=== PATIENT | male | born 1970 | race Caucasian/White ===

== ENCOUNTER 2018-03-17 20:21 | Inpatient (IN) ==
[2018-03-18] MEDS: Chlorhexidine Gluconate 2% 1 Pack (2 Cloths) TOPICAL SCH (03:44)
[2018-03-18] MEDS ORDERED: Chlorhexidine Gluconate 2% 1 Pack (2 Cloths) TOPICAL PRN (04:00)
[2018-03-18] MEDS ORDERED: Acetaminophen 325 MG Tablet PO PRN (04:20)
[2018-03-18] MEDS ORDERED: Sod Chloride 0.9% Inj 1,000 ML IV.SIG SCH (04:27)
[2018-03-18] MEDS ORDERED: Dextrose 50% in Water 50 ML Vial IV.PUSH PRN (04:28)
[2018-03-18] MEDS ORDERED: Sod Chloride 0.9% Inj 1,000 ML IV.CONT SCH (04:30)
[2018-03-18] MEDS ORDERED: Ketorolac Inj 30 MG/ML (IVP) Vial IV.PUSH ONE (04:32)
--- NOTE | 2018-03-18 04:32 | P.HPIM ---
History of Present Illness Service: [facility] Primary Care Physician: UNKNOWN Chief Complaint: Nausea and vomiting History of Present Illness: 47 y/o male with a history of DM, HTN, and an AR ( age 40, no stents) presented to the ED with complaints of Nausea and vomiting since Friday, no BM since and shortness of breath. He states he has not been able to keep anything down and feels he can not catch his breath. Denies any chest pain, abdominal pain, abdominal distention, dysuria, cough, or fever. He does have chills. Inpatient Certification Inpatient Certification: I certify that the inpatient services were ordered in accordance with Medicare regulations governing the order. This includes certification that hospital inpatient services are reasonable and necessary and in the case of services not specified as inpatient-only under 42 CFR 419.22(n), that they are appropriately provided as inpatient services in accordance to with the 2-midnight benchmark under 43 CFR 412.3(e) Estimated Total Length of Stay (Days): 2 Plans for Post Hospital Care: Home Review of Systems Review of Systems: all other systems reviewed are negative PMFSH History History Provided By: Patient Medical History Medical History Diabetes mellitus (Acute) HTN (hypertension) (Acute) Hypercholesterolemia (Acute) Myocardial infarction (Acute) Neuropathy (Acute) Surgical History Surgical History Hx of appendectomy (Acute) Family History Family History Mother Breast cancer Heart disease Diabetes Father Heart disease Diabetes Social History Social History Substance History: No History of Abuse Second Hand Smoke Exposure: No Smoking Status: Never smoker How Often Do You Have a Drink Containing Alcohol: Never Medications and Allergies Allergies Allergy/AdvReac Type Severity Reaction Status Date / Time No Known Allergies Allergy Verified 03/17/18 20:42 Home Medications Medication Instructions Recorded Confirmed Type aspirin [Aspirin Low Dose] 81 mg PO DAILY 01/26/18 03/17/18 History gabapentin 100 mg PO TID 01/26/18 03/17/18 History insulin glargine [Lantus U-100 50 unit SUBCUT BID 01/26/18 03/17/18 History Insulin] lisinopril 10 mg PO DAILY 01/26/18 03/17/18 History pravastatin 40 mg PO DAILY 01/26/18 03/17/18 History sertraline [Zoloft] 50 mg PO DAILY 01/26/18 03/17/18 History Active Medications: Active Medications Acetaminophen (Tylenol) 650 mg PO Q4H PRN PRN Reason: Temp > 100.4 Chlorhexidine Gluconate (Chlorhexidine 2% Cloth) 3 pack TOPICAL DAILY@0400 LI Stop: 03/23/18 03:59 Last Admin: 03/18/18 03:44 Dose: 3 pack Chlorhexidine Gluconate (Chlorhexidine 2% Cloth) 3 pack TOPICAL DAILY@0400 PRN PRN Reason: Extra cloth needed Stop: 03/23/18 03:59 Sodium Chloride (Ns Inj) 1,000 mls @ 1,000 mls/hr IV.SIG BOLUS [facility] Stop: 03/18/18 05:26 Ondansetron HCl (Zofran Inj) 4 mg IV.PUSH Q6H PRN PRN Reason: NAUSEA OR VOMITING Sodium Chloride (Ns Flush) 2 ml IV.FLUSH BID [facility] Sodium Chloride (Ns Flush) 2 ml IV.FLUSH PRN PRN PRN Reason: FLUSH AFTER USING IV ACCESS Physical Exam Vital signs: Last Vital Signs Temp 98.5 F 03/18/18 04:00 Pulse 108 H 03/18/18 04:00 Resp 32 H 03/18/18 04:00 BP 144/76 H 03/18/18 04:00 Pulse Ox 96 03/18/18 04:00 Intake & Output 03/15/18 03/16/18 03/17/18 03/18/18 06:59 06:59 06:59 06:59 Weight 94 kg Narrative: GENERAL: well nourished patient who appears sob SKIN: Warm and dry. multiple scabs on bilateral lower extremities EYES: No scleral icterus. No injection or drainage. NECK: Supple, trachea midline. No JVD or lymphadenopathy. CARDIOVASCULAR: Tachycardic rate and rhythm without murmurs, gallops, or rubs. RESPIRATORY: Breath sounds equal bilaterally. diminished bases GASTROINTESTINAL: Abdomen soft, non-tender, nondistended. MUSCULOSKELETAL: No cyanosis, or edema. Caprini VTE Risk Assessment Caprini VTE Risk Assessment: Moderate/High Risk (score >= 2) Caprini Risk Assessment Model: Point Value = 1 Point Value = 2 Point Value = 3 Point Value = 5 Age 41-60 Minor surgery BMI > 25 kg/m2 Swollen legs Varicose veins or History of unexplained or recurrent spontaneous Oral contraceptives or hormone replacement Sepsis (< 1 month) Serious lung disease, including pneumonia (< 1 month) Abnormal pulmonary function Acute myocardial infarction Congestive heart failure (< 1 month) History of inflammatory bowel disease Medical patient at bed rest Age 61-74 Arthroscopic surgery Major open surgery (> 45 min) Laparoscopic surgery (> 45 min) Malignancy Confined to bed (> 72 hours) Immobilizing plaster cast Central venous access Age >= 75 History of VTE Family history of VTE Factor V Leiden Prothrombin [id number] Lupus anticoagulant Anticardiolipin antibodies Elevated serum homocysteine Heparin-induced thrombocytopenia Other congenital or acquired thrombophilia Stroke (< 1 month) Elective arthroplasty Hip, pelvis, or leg fracture Acute spinal cord injury (< 1 month) Prophylaxis Regimen: Total Risk Factor Score Risk Level Prophylaxis Regimen 0-1 Low Early ambulation 2 Moderate Order ONE of the following: *Sequential Compression Device (SCD) *Heparin 5000 units SQ BID 3-4 Higher Order ONE of the following medications: *Heparin 5000 units SQ TID *Enoxaparin/Lovenox 40 mg SQ daily (WT < 150 kg, CrCl > 30 mL/min) *Enoxaparin/Lovenox 30 mg SQ daily (WT < 150 kg, CrCl > 10-29 mL/min) *Enoxaparin/Lovenox 30 mg SQ BID (WT < 150 kg, CrCl > 30 mL/min) AND/OR *Sequential Compression Device (SCD) 5 or more Highest Order ONE of the following medications: *Heparin 5000 units SQ TID (Preferred with Epidurals) *Enoxaparin/Lovenox 40 mg SQ daily (WT < 150 kg, CrCl > 30 mL/min) *Enoxaparin/Lovenox 30 mg SQ daily (WT < 150 kg, CrCl > 10-29 mL/min) *Enoxaparin/Lovenox 30 mg SQ BID (WT < 150 kg, CrCl > 30 mL/min) AND *Sequential Compression Device (SCD) Assessment and Plan Plan 47 y/o male with a history of DM, HTN, and an AR (age 40, no stents) presented to the ED with complaints of Nausea and vomiting since Friday, no BM since and shortness of breath. Nausea and vomiting, unknown etiology Abdominal CT reviewed and shows no acute abnormality -antiemetics as needed -NS bolus for hydration Leukocytosis with Bandemia, 37%, wbc 13.8 Chest XR unremarkable -Blood cultures ordered -Lactic acid ordered -Empirically treat with IV Zosyn -UA culture pending, UA abnormal but does not appear infectious -Labs in AM Tachycardia, r/o PE D dimer 2.0 -VQ scan ordered since patient received contrast with CT -Cont heparin drip NSTEMI, troponin .14-->.18 EKG shows sinus tach, no ST elevation -3rd troponin set pending -Heparin drip ordered -consult to cardiology -2D echo ordered DM, chronic -Accu checks with SSI HTN, chronic -Nursing order to call and update med rec -Monitor vitals DVT prophylaxis: SCDs, Heparin H&P: Quality VTE Deep Vein Thrombosis/Pulmonary Embolism Present on Admission: No
[2018-03-18] MEDS ORDERED: Heparin Drip 25,000 UNIT/250 ML BAG IV.CONT PRN (04:40)
[2018-03-18] MEDS: Piperacil/Tazo 3.375 GM Premix 3.375 GM/50 ML PIGGYBACK IV.SIG SCH ×4 (05:37→23:16)
[2018-03-18] MEDS ORDERED: Bisacodyl 10 MG Supp RECTAL ONE (07:00)
[2018-03-18 08:03] LABS: Baso % (Auto) 0.3 % (0.0-2.0); Eos % (Auto) 0.2 % (0.0-4.0); Hematocrit 32.1 % (39.0-51.0); Hemoglobin 10.8 gm/dL (13.0-17.0); Lymph % (Auto) 7.4 % (9.0-44.0); Mean Corpuscular HGB Conc 33.7 % (32.0-36.0); Mean Corpuscular Hemoglobin 27.5 pg (27.0-34.0); Mean Corpuscular Volume 81.7 fL (80.0-100.0); Mean Platelet Volume 8.6 fL (7.0-11.0); Mono # (Auto) 0.8 th/mm3 (0.0-0.9); Mono % (Auto) 6.4 % (0.0-8.0); Neut # (Auto) 11.2 th/mm3 (1.8-7.7); Neut % (Auto) 85.7 % (16.0-70.0); Platelet Count 178 th/mm3 (150-450); Red Blood Count 3.94 mil/mm3 (4.50-5.90); Red Cell Distribution Width 13.1 % (11.6-17.2)
[2018-03-18 08:30] LABS: Anion Gap 8 meq/L (5-15); Blood Urea Nitrogen 9 mg/dL (7-18); Calcium 8.6 mg/dL (8.5-10.1); Carbon Dioxide 27.8 meq/L (21.0-32.0); Chloride 96 meq/L (98-107); Glomerular Filtration Rate Greater Than 89 mL/min (>89); Glucose,Random 213 mg/dL (74-106); Potassium 3.5 meq/L (3.5-5.1); Sodium 132 meq/L (136-145)
[2018-03-18 08:35] LABS: Creatine Kinase 27 U/L (39-308)
[2018-03-18] MEDS: Insulin NovoLOG Aspart Correctional Sugar Inj SQ SCH ×4 (09:00→20:48)
[2018-03-18] MEDS: Aspirin 325 MG Tablet PO SCH (09:28)
[2018-03-18] MEDS: Ketorolac Inj 30 MG/ML (IVP) Vial IV.PUSH PRN ×2 (10:41→17:49)
--- NOTE | 2018-03-18 11:42 | NM ---
EXAM DATE: 03/18/2018 11:35 AM EST AGE/SEX: 47 years / Male INDICATIONS: Dyspnea. CLINICAL DATA: This is the patient's initial encounter. Patient reports that signs and symptoms have been present for 1 day and indicates a pain score of 0/10. MEDICAL/SURGICAL HISTORY: Diabetes mellitus type II. Hypertension. Myocardial infarction. Claudio endectomy. COMPARISON: [facility], CHEST 2V AP&LAT, 03/17/2018. . DOSE: 1.3 mCi Tc99m DTPA aerosol 8.7 mCi Tc99m MAA IV TECHNIQUE: Following five minutes of tidal breathing of DTPA aerosol, planar images of the lungs wer e performed in eight projections. The patient was then injected with MAA, and eight-view perfusion s can was performed. FINDINGS: There is a homogeneous pattern of aerosol delivery to the periphery of both lungs. No focal ventilat ory defects are seen. The perfusion lung scan demonstrates a homogenous pattern of uptake in both lungs. No segmental or s ubsegmental defects are seen. CONCLUSION: 1. Negative examination. Electronically signed by: Sara Belle MD Board Certified Radiologist 03/18/2018 11:41 AM EST
--- NOTE | 2018-03-18 13:53 | MB ---
cc: Jeffrey Gomez MD DATE: 03/18/2018 CARDIOLOGY CONSULT NOTE REASON FOR CONSULTATION: Elevated troponin. HISTORY OF PRESENT ILLNESS: The patient is a 47-year-old white male with a history of diabetes, hypertension, hyperlipidemia, coronary artery disease, apparently status post myocardial infarction in 2009 in [place], who presented to the hospital with a 4-day history of nausea, vomiting, constipation, fever. In addition, yesterday he developed dyspnea, which persists today. He denies chest pain, pedal edema, paroxysmal nocturnal dyspnea, palpitations, syncope, near syncope, lightheadedness. Since coming into the hospital, his nausea and vomiting have resolved. He had not had a bowel movement in a week, but was able to have a good bowel movement this morning. PAST MEDICAL HISTORY: 1. Diabetes. 2. Hypertension. 3. Hyperlipidemia. 4. Coronary artery disease, reportedly status post myocardial infarction in 2009 in [place]. He states he did undergo cardiac catheterization, but no percutaneous coronary intervention was done. PAST SURGICAL HISTORY: 1. Appendectomy. 2. LASIK eye surgery. CARDIAC MEDICATIONS AT HOME: 1. Aspirin 81 mg daily. 2. Pravastatin 40 mg daily. 3. Lisinopril 10 mg daily. ALLERGIES: NO KNOWN DRUG ALLERGIES. FAMILY HISTORY: Both parents sustained myocardial infarctions in their 50s, his mother subsequently undergoing 5 stent procedures and dying from congestive heart failure, his father subsequently undergoing coronary artery bypass grafting. SOCIAL HISTORY: The patient denies any history of alcohol or tobacco abuse. REVIEW OF SYSTEMS: As in history of present illness, otherwise negative or noncontributory. He also denies headache, melena, dyspepsia, bright red blood per rectum. PHYSICAL EXAMINATION: VITAL SIGNS: His blood pressure 147/83 with a pulse of 80, respirations 12. GENERAL: He is a well-developed, well-nourished white male, in no acute distress. NECK: Jugular venous pressure normal. Carotid pulses are 2+ bilaterally and without bruits. CHEST: Reveals clear lungs rod. CARDIAC: He has a regular rhythm and rate without S3, S4, or murmur. ABDOMEN: He has a soft, nontender abdomen. Bowel sounds are present. There is no definite hepatosplenomegaly. EXTREMITIES: Reveals no clubbing, cyanosis or edema. Peripheral pulses are normal throughout. DIAGNOSTIC DATA: EKG from 1-19 at 12:36 a.m. shows normal sinus rhythm, normal EKG. IMAGING: Chest x-ray shows no acute disease. LABORATORY DATA: Includes potassium 3.5, BUN 9, creatinine 0.79. CK 27. Troponin 0.30. WBC 13.0, hemoglobin 10.8, platelets 178. IMPRESSION: Minimally elevated troponin level in this 47-year-old white male with a history of diabetes, hypertension, hyperlipidemia, coronary artery disease status post myocardial infarction in 2009. The patient has had no definite chest pain symptoms. EKGs are unremarkable. CK level is negative for myocardial infarction. Overall, there is no definite evidence for acute coronary syndrome. He has not had cardiac workup since his myocardial infarction. RECOMMENDATIONS: 1. Await his 2-D echo. If his left ventricular function is reduced, would recommend beta carlota therapy as well. 2. Check a Lexiscan nuclear stress test. Unless it shows major ischemia, would recommend medical therapy. 3. Will followup as needed for any ischemia demonstrated on nuclear stress testing. MD GHAZALA Huff/jaziel , 01:02 PM , 01:11 PM THANH
--- NOTE | 2018-03-18 13:57 | ECHRPT ---
Indication: HEART FAILURE CONCLUSIONS Normal left ventricular size. Wall thickness is measured at the upper limits of normal. The left ventricular systolic function is normal with an estimated ejection fraction in the range of 60-65%. No definite regional wall motion abnormalities are present. There is mild tricuspid valve regurgitation. The estimated pulmonary arterial pressure is 25 mmHg. BP: / HR: Rhythm: MEASUREMENTS (Male / Female) Normal Values Technical Quality: 2D ECHO LV Diastolic Diameter PLAX 4.0 cm 4.2 - 5.9 / 3.9 - 5.3 cm LV Systolic Diameter PLAX 2.8 cm IVS Diastolic Thickness 1.7 cm 0.6 - 1.0 / 0.6 - 0.9 cm LVPW Diastolic Thickness 1.4 cm 0.6 - 1.0 / 0.6 - 0.9 cm LV Relative Wall Thickness 0.8 RV Internal Dim ED PLAX 3.3 cm LVOT Diameter 2.0 cm Aortic Root Diameter 2.3 cm LA Systolic Diameter LX 3.5 cm 3.0 - 4.0 / 2.7 - 3.8 cm M-MODE Aortic Root Diameter MM 3.4 cm LA Systolic Diameter MM 4.8 cm LA Ao Ratio MM 1.4 AV Cusp Separation MM 2.2 cm DOPPLER AV Peak Velocity 121.0 cm/s AV Peak Gradient 5.9 mmHg LVOT Peak Velocity 114.0 cm/s LVOT Peak Gradient 5.2 mmHg AV Area Cont Eq pk 3.0 cm Mitral E Point Velocity 91.8 cm/s Mitral A Point Velocity 97.2 cm/s Mitral E to A Ratio 0.9 LV E' Lateral Velocity 10.8 cm/s Mitral E to LV E' Lateral Ratio 8.5 LV E' Septal Velocity 6.8 cm/s Mitral E to LV E' Septal Ratio 13.5 TR Peak Velocity 192.0 cm/s TR Peak Gradient 14.7 mmHg Right Atrial Pressure 10.0 mmHg Pulmonary Artery Systolic Pressu 24.7 mmHg Right Ventricular Systolic Press 24.7 mmHg PV Peak Velocity 130.0 cm/s PV Peak Gradient 6.8 mmHg FINDINGS LEFT VENTRICLE Normal left ventricular size. Wall thickness is measured at the upper limits of normal. The left ventricular systolic function is normal with an estimated ejection fraction in the range of 60-65%. No definite regional wall motion abnormalities are present. RIGHT VENTRICLE Normal right ventricular size and systolic function. LEFT ATRIUM The left atrial size is normal. RIGHT ATRIUM The right atrial size is normal. ATRIAL SEPTUM Normal atrial septal thickness without atrial level shunting by limited color doppler interrogation. AORTA The aortic root and proximal ascending aorta are normal in size on limited imaging. MITRAL VALVE Structurally normal mitral valve. No mitral valve stenosis or regurgitation. AORTIC VALVE Trileaflet aortic valve. No aortic valve stenosis or regurgitation. TRICUSPID VALVE The estimated pulmonary arterial pressure is 25 mmHg. There is mild tricuspid valve regurgitation. PULMONARY VALVE No pulmonary valve regurgitation or stenosis. VESSELS The inferior vena cava is normal in size. PERICARDIUM No pericardial effusion. Jeffrey Gomez MD (Electronically Signed) Final Date:18 March 2018 13:57
--- NOTE | 2018-03-18 17:00 | P.PNIM ---
Patient was evaluated today. VQ scan was negative. ECHO was within normal limits. Evaluated by cardiology w/ stress test pending. He remains tachypneic and tachycardic without obvious source for his chest pain and discomfort. He will remain in the ICU until his etiology becomes more clear.
[2018-03-19] MEDS: Ketorolac Inj 30 MG/ML (IVP) Vial IV.PUSH PRN (00:45)
[2018-03-19] MEDS: Piperacil/Tazo 3.375 GM Premix 3.375 GM/50 ML PIGGYBACK IV.SIG SCH ×2 (05:19→10:45)
[2018-03-19] MEDS: Chlorhexidine Gluconate 2% 1 Pack (2 Cloths) TOPICAL SCH (05:19)
[2018-03-19 06:18] LABS: Hematocrit 32.3 % (39.0-51.0); Hemoglobin 10.8 gm/dL (13.0-17.0); Mean Corpuscular HGB Conc 33.5 % (32.0-36.0); Mean Corpuscular Hemoglobin 27.7 pg (27.0-34.0); Mean Corpuscular Volume 82.6 fL (80.0-100.0); Mean Platelet Volume 8.1 fL (7.0-11.0); Platelet Count 192 th/mm3 (150-450); Red Blood Count 3.91 mil/mm3 (4.50-5.90); Red Cell Distribution Width 13.4 % (11.6-17.2); White Blood Count 11.4 th/mm3 (4.0-11.0)
[2018-03-19] MEDS: Heparin - SQ 10,000 UNITS/ML Vial SQ SCH ×2 (08:36→21:42)
[2018-03-19] MEDS: Aspirin 325 MG Tablet PO SCH (08:36)
[2018-03-19] MEDS: Insulin NovoLOG Aspart Correctional Sugar Inj SQ SCH ×4 (08:41→21:42)
--- NOTE | 2018-03-19 12:04 | P.PNIM ---
Subjective Interval history: Patient is currently in no acute distress. He denies any chest pain. No palpitations. He said he has a poor appetite but his nausea and vomiting has resolved. Physical Exam Vital signs: Vital Signs 03/18/18 12:00 03/18/18 16:00 03/18/18 17:00 Temperature 98.9 F 98.7 F Pulse Rate 107 H 108 H 107 H Respiratory Rate 22 21 23 Blood Pressure 142/73 H 146/70 H 138/63 Pulse Oximetry 97 95 96 03/18/18 18:00 03/18/18 20:00 03/18/18 22:34 Temperature 98.6 F Pulse Rate 106 H 106 H 109 H Respiratory Rate 21 20 Blood Pressure 153/88 H 129/65 Pulse Oximetry 96 99 03/19/18 00:00 03/19/18 04:00 03/19/18 08:00 Temperature 98.4 F 98.3 F 98.7 F Pulse Rate 104 H 93 H 96 H Respiratory Rate 20 20 21 Blood Pressure 169/92 H 134/63 175/89 H Pulse Oximetry 95 97 97 Intake & Output 03/18/18 03/19/18 03/19/18 18:59 06:59 18:59 Intake Total 2450 / 2450 580 / 580 Output Total 1500 / 1500 Balance 2450 / 2450 -920 / -920 Weight 94.5 kg Intake: IV 1250 / 1250 100 / 100 Heparin/D5W 25,000 U/250 mL 25, 150 / 150 000 unit In 250 ml @ Per Protocol IV.CONT TITRATE PRN Rx #:[id number] Zosyn 3.375 GM Premix 3.375 gm 100 / 100 100 / 100 In 50 ml @ 100 mls/hr IV.SIG Q6H LI Rx#:[id number] NS Inj 1,000 ML @ 1000 mls/hr 1000 / 1000 IV.SIG BOLUS LI Rx#:[id number] Oral 1200 / 1200 480 / 480 Output: Urine 1500 / 1500 Other: # Voids 5 Date of Last Bowel Movement 03/18/18 03/18/18 03/18/18 # Bowel Movements 2 0 Narrative: General patient in no acute distress, no chest pain HEENT extraocular movements are intact, clear oropharyngeal mucosa, no JVD Cardiovascular S1-S2 audible Respiratory clear to auscultation bilaterally Abdomen soft, nontender, nondistended, normal bowel sounds Extremities multiple wounds of bilateral lower extremities as well as left shoulder, no active drainage. Neuro no focal neurological deficits. Results - Labs CBC & Chem 7: 03/19/18 05:40 03/18/18 06:00 Laboratory Results - last 24 hr 03/18/18 03/18/18 03/18/18 12:19 14:52 17:48 WBC RBC Hgb Hct MCV MCH MCHC RDW Plt Count MPV APTT 33.6 H POC Glucose 226 H 215 H 03/18/18 03/19/18 03/19/18 20:33 05:40 08:35 WBC 11.4 H RBC 3.91 L Hgb 10.8 L Hct 32.3 L MCV 82.6 MCH 27.7 MCHC 33.5 RDW 13.4 Plt Count 192 MPV 8.1 APTT POC Glucose 180 H 190 H 03/19/18 10:59 WBC RBC Hgb Hct MCV MCH MCHC RDW Plt Count MPV APTT POC Glucose 198 H Microbiology 03/18/18 04:55 Blood - Peripheral Aerobic Blood Culture - Preliminary Staphylococcus aureus 03/18/18 04:55 Blood - Peripheral Anaerobic Blood Culture - Preliminary No growth in 1 day 03/18/18 05:13 Blood - Peripheral Aerobic Blood Culture - Preliminary gram positive cocci 03/18/18 05:13 Blood - Peripheral Anaerobic Blood Culture - Preliminary No growth in 1 day 03/18/18 11:00 Stool Stool Occult Blood (LETY) - Final Hemoccult negative - Imaging Impressions Pulmonary Perfusion Imaging 03/18/18 00:00 CONCLUSION: 1. Negative examination. Assessment and Plan - Plan This patient is a 47-year-old male with a diagnosis of insulin-dependent diabetes, hypertension, history of IN at age 40, no stents. Patient presented to the emergency part with complaints of nausea vomiting that have been ongoing since this past Friday. He also complained of some shortness of breath during that time. 1. Elevated troponin Patient presents with the symptoms mentioned above. EKG shows normal sinus rhythm no acute ST segment or T wave changes. Initial set of troponins was 0.14 increased to 0.3. Follow-up repeat troponin Cardiology evaluated the patient and recommended a 2D echocardiogram, EF is around 60%. We will follow-up repeat troponin. Patient may need a Lexiscan as per cardiology recommendations. Cardiology following the patient, will follow up with the recognitions. Continue aspirin, metoprolol started. Atorvastatin will also be started the patient's medication regimen. Patient is now off the heparin drip. Continue to monitor on telemetry. 2. Insulin-dependent diabetes Patient's blood sugar running in the 200s-250s. Patient does not have a very good appetite currently we will start Levemir 5 units subcu nightly, continue low-dose insulin sliding scale. We will continue monitor the patient's blood sugars and adjust his medications as needed 3. GPC bacteremia Patient with multiple wounds on b/l lower exts and left shoulder. Most of them are healing or have healed. WBC count was elevated, now downtrending. 2 out of 2 blood cultures are positive for GPC. We will follow-up final cultures Infectious disease consulted. 2D echocardiogram did not show any clear findings of vegetations. I will follow-up with infectious disease recommendations, I would appreciate their input. IV Zosyn discontinued, patient does not have any GI symptoms currently. Vancomycin IV started. DVT prophylaxis, patient is currently on heparin. Plan discussed with the patient's nurse April at bedside.
[2018-03-19] MEDS: Vancomycin Inj 1,000 MG in Sodium Chlor 0.9% Inj 250 ML IV.SIG SCH (12:46)
[2018-03-19] MEDS: Metoprolol Tartrate 25 MG Tablet PO SCH ×2 (12:46→21:42)
--- NOTE | 2018-03-19 17:51 | P.CONID ---
History of Present Illness Service: ID Consult date: 03/19/18 Requesting Physician: Killian Teixeira Reason for Consult: bacteremia Primary Care Provider: UNKNOWN Chief Complaint: Nausea and vomiting History of Present Illness: 47 yo male with h/o DM hypertension, hyperlipidemia, coronary artery disease, apparently status post myocardial infarction in 2009 presented with 4-day history of nausea , vomiting, constipation, fever. dyspnea x 1 day which persists today. Blood clx arfe positive for MSSA 2 D echo negative He has had BMs since admission No open sores, but reports multiple skin lesionz Started on vancomycin, zosyn, zosyn now stopped CXR and CT abd/pel negative Review of Systems All other systems reviewed negative except as stated in HPI PMFSH - History History Provided By: Patient - Medical History Medical History: Medical History (Last Reviewed 03/19/18 @ 23:18 by Violetta Blanca MD) Diabetes mellitus HTN (hypertension) Hypercholesterolemia Myocardial infarction Neuropathy - Surgical History Surgical History: Surgical History (Last Reviewed 03/19/18 @ 23:18 by Violetta Blanca MD) Hx of appendectomy - Family History Family History: Family History (Last Reviewed 03/19/18 @ 23:18 by Violetta Blanca MD) Mother Breast cancer Heart disease Diabetes Father Heart disease Diabetes - Social History I have reviewed the patient's Social History: Yes - Tobacco History Second Hand Smoke Exposure: No Smoking Status: Never smoker - Alcohol History How Often Do You Have a Drink Containing Alcohol: Never - Substance Use History Substance History: No History of Abuse Medications and Allergies Active Medications: Active Medications Acetaminophen (Tylenol) 650 mg PO Q4H PRN PRN Reason: Temp > 100.4 Aspirin (Aspirin Chew) 81 mg PO DAILY [facility] Last Admin: 03/19/18 12:46 Dose: 81 mg Atorvastatin Calcium (Lipitor) 40 mg PO HS [facility] Chlorhexidine Gluconate (Chlorhexidine 2% Cloth) 3 pack TOPICAL DAILY@0400 LI Stop: 03/23/18 03:59 Last Admin: 03/19/18 05:19 Dose: 3 pack Chlorhexidine Gluconate (Chlorhexidine 2% Cloth) 3 pack TOPICAL DAILY@0400 PRN PRN Reason: Extra cloth needed Stop: 03/23/18 03:59 Dextrose (D50w Vial) 50 ml IV.PUSH UNSCH PRN PRN Reason: PER HYPOGLYCEMIA PROTOCOL Glucagon (Glucagon Inj) 1 mg OTHER PRN PRN PRN Reason: for Hypoglycemia Protocol Heparin Sodium (Porcine) (Heparin Inj) 5,000 units SQ Q12H [facility] Last Admin: 03/19/18 08:36 Dose: 5,000 units Vancomycin HCl 1,000 mg/ (Sodium Chloride) 250 mls @ 250 mls/hr IV.SIG Q12H [facility] Last Infusion: 03/19/18 14:12 Dose: Infused Insulin Aspart (Novolog Insulin Correctional Sugar Inj) 0 unit SQ [facility]; Protocol Last Admin: 03/19/18 16:07 Dose: 2 unit Insulin Detemir (Levemir Inj) 5 unit SQ [facility] Ketorolac Tromethamine (Toradol Inj) 15 mg IV.PUSH Q6H PRN PRN Reason: Acute Pain Last Admin: 03/19/18 00:45 Dose: 15 mg Metoprolol Tartrate (Lopressor) 12.5 mg PO BID [facility] Last Admin: 03/19/18 12:46 Dose: 12.5 mg Ondansetron HCl (Zofran Inj) 4 mg IV.PUSH Q6H PRN PRN Reason: NAUSEA OR VOMITING Sodium Chloride (Ns Flush) 2 ml IV.FLUSH BID [facility] Last Admin: 03/19/18 08:36 Dose: 2 ml Sodium Chloride (Ns Flush) 2 ml IV.FLUSH PRN PRN PRN Reason: FLUSH AFTER USING IV ACCESS Allergies Allergy/AdvReac Type Severity Reaction Status Date / Time No Known Allergies Allergy Verified 03/17/18 20:42 Home Medications Medication Instructions Recorded Confirmed Type aspirin [Aspirin Low Dose] 81 mg PO DAILY 01/26/18 03/17/18 History gabapentin 100 mg PO TID 01/26/18 03/17/18 History insulin glargine [Lantus U-100 50 unit SUBCUT BID 01/26/18 03/17/18 History Insulin] lisinopril 10 mg PO DAILY 01/26/18 03/17/18 History pravastatin 40 mg PO DAILY 01/26/18 03/17/18 History sertraline [Zoloft] 50 mg PO DAILY 01/26/18 03/17/18 History Exam Vital signs: Vital Signs 03/18/18 18:00 03/18/18 20:00 03/18/18 22:34 Temperature 98.6 F Pulse Rate 106 H 106 H 109 H Respiratory Rate 21 20 Blood Pressure 153/88 H 129/65 Pulse Oximetry 96 99 03/19/18 00:00 03/19/18 04:00 03/19/18 08:00 Temperature 98.4 F 98.3 F 98.7 F Pulse Rate 104 H 93 H 96 H Respiratory Rate 20 20 21 Blood Pressure 169/92 H 134/63 175/89 H Pulse Oximetry 95 97 97 03/19/18 08:49 03/19/18 09:00 03/19/18 09:01 Temperature Pulse Rate 98 H 92 H 91 H Respiratory Rate 25 H 24 23 Blood Pressure 149/80 H Pulse Oximetry 96 97 98 03/19/18 10:00 03/19/18 11:00 03/19/18 12:00 Temperature 98.7 F Pulse Rate 102 H 96 H 97 H Respiratory Rate 22 25 H 36 H Blood Pressure 141/92 H 134/70 Pulse Oximetry 95 96 96 03/19/18 12:01 03/19/18 16:00 Temperature 98.6 F Pulse Rate 103 H 91 H Respiratory Rate 32 H 23 Blood Pressure 145/68 H 167/85 H Pulse Oximetry 94 L 99 Intake & Output 03/18/18 03/19/18 03/19/18 18:59 06:59 18:59 Intake Total 2450 / 2450 580 / 580 300 / 300 Output Total 1500 / 1500 Balance 2450 / 2450 -920 / -920 300 / 300 Weight 94.5 kg Intake: IV 1250 / 1250 100 / 100 300 / 300 Heparin/D5W 25,000 U/250 mL 25, 150 / 150 000 unit In 250 ml @ Per Protocol IV.CONT TITRATE PRN Rx #:[id number] Zosyn 3.375 GM Premix 3.375 gm 100 / 100 100 / 100 50 / 50 In 50 ml @ 100 mls/hr IV.SIG Q6H LI Rx#:[id number] NS Inj 1,000 ML @ 1000 mls/hr 1000 / 1000 IV.SIG BOLUS LI Rx#:[id number] Vancomycin Inj 1,000 MG In NS 250 / 250 Inj 250 ML @ 250 mls/hr IV.SIG Q12H LI Rx#:[id number] Oral 1200 / 1200 480 / 480 Output: Urine 1500 / 1500 Other: # Voids 5 Date of Last Bowel Movement 03/18/18 03/18/18 03/18/18 # Bowel Movements 2 0 - Constitutional no acute distress, obese - Routine HEENT Exam Head: Present: normocephalic, atraumatic Eye: Present: EOMI, PERRL ENT: Present: mucous membranes moist, oropharynx clear - Routine Neck Exam Present: supple. Absent: JVD, lymphadenopathy - Routine Respiratory Exam Present: decreased breath sounds (habituis), CTA bilaterally. Absent: accessory muscle use - Routine Cardiovascular Exam Present: RRR, S1, S2. Absent: murmur, gallop, rubs - Routine Abdominal Exam Present: soft, normoactive bowel sounds. Absent: tenderness, distended, organomegaly, mass - Routine Extremities Exam Absent: cyanosis, clubbing, edema - Routine Skin Exam Present: intact, warm, lesions (multiple heling lesion in different stages of healin, none oaaprs acivel;y indfected or draining). Absent: cyanosis, rash - Routine Neurological Exam Present: alert, oriented X3, CN II-XII intact, normal speech. Absent: sensory deficit, motor deficit - Routine Psychiatric Exam Present: normal affect, cooperative Results - Labs CBC & Chem 7: 03/20/18 04:38 03/20/18 04:38 Labs: Laboratory Results - last 24 hr 03/18/18 03/18/18 03/19/18 17:48 20:33 05:40 WBC 11.4 H RBC 3.91 L Hgb 10.8 L Hct 32.3 L MCV 82.6 MCH 27.7 MCHC 33.5 RDW 13.4 Plt Count 192 MPV 8.1 POC Glucose 215 H 180 H Troponin I 03/19/18 03/19/18 03/19/18 08:35 10:59 12:01 WBC RBC Hgb Hct MCV MCH MCHC RDW Plt Count MPV POC Glucose 190 H 198 H Troponin I 0.27 H 03/19/18 16:03 WBC RBC Hgb Hct MCV MCH MCHC RDW Plt Count MPV POC Glucose 191 H Troponin I - Imaging Pulmonary Perfusion Imaging 03/18/18 00:00 CONCLUSION: 1. Negative examination. Assessment and Plan - Plan MSSA bacteremia, source is inapparent 2 echo w/o e/o vegetations will cont vanco add cefazolin will dc vanco if MSSA confirmed repeat blood clx If MSSA in multiple bottles w and no source will need JULIETA
--- NOTE | 2018-03-19 17:55 | P.PNADD ---
Addendum to Inpatient Note Additional information: Pt seen and examined full note to follow A/P: MSSA bacteremia, source is inapparent will cont vanco add cefazolin will dc vanco if MSSA confirmed
[2018-03-19] MEDS ORDERED: ceFAZolin Inj 2,000 MG in Sodium Chlor 0.9% Inj 80 ML IV.SIG SCH (17:56)
[2018-03-19] MEDS: ceFAZolin 2 GM Premix Inj 2 GM/50 ML PIGGYBACK IV.SIG SCH (18:29)
[2018-03-19] MEDS: Insulin Detemir Inj 1,000 UNIT/10 ML Vial SQ SCH (21:42)
[2018-03-20] MEDS: Vancomycin Inj 1,000 MG in Sodium Chlor 0.9% Inj 250 ML IV.SIG SCH ×2 (00:58→15:00)
[2018-03-20] MEDS: ceFAZolin 2 GM Premix Inj 2 GM/50 ML PIGGYBACK IV.SIG SCH ×3 (01:05→18:26)
[2018-03-20] MEDS: Chlorhexidine Gluconate 2% 1 Pack (2 Cloths) TOPICAL SCH (04:53)
[2018-03-20 05:26] LABS: Baso % (Auto) 0.3 % (0.0-2.0); Eos # (Auto) 0.1 th/mm3 (0.0-0.4); Eos % (Auto) 0.8 % (0.0-4.0); Hematocrit 29.7 % (39.0-51.0); Hemoglobin 10.2 gm/dL (13.0-17.0); Lymph # (Auto) 1.5 th/mm3 (1.0-4.8); Lymph % (Auto) 14.9 % (9.0-44.0); Mean Corpuscular HGB Conc 34.5 % (32.0-36.0); Mean Corpuscular Hemoglobin 27.7 pg (27.0-34.0); Mean Corpuscular Volume 80.2 fL (80.0-100.0); Mean Platelet Volume 7.9 fL (7.0-11.0); Mono # (Auto) 0.7 th/mm3 (0.0-0.9); Mono % (Auto) 7.1 % (0.0-8.0); Neut # (Auto) 7.5 th/mm3 (1.8-7.7); Neut % (Auto) 76.9 % (16.0-70.0); Platelet Count 241 th/mm3 (150-450); Red Cell Distribution Width 13.2 % (11.6-17.2); White Blood Count 9.8 th/mm3 (4.0-11.0)
[2018-03-20 05:51] LABS: Anion Gap 8 meq/L (5-15); Blood Urea Nitrogen 10 mg/dL (7-18); Calcium 8.5 mg/dL (8.5-10.1); Carbon Dioxide 28.5 meq/L (21.0-32.0); Chloride 100 meq/L (98-107); Glomerular Filtration Rate Greater Than 89 mL/min (>89); Glucose,Random 159 mg/dL (74-106); Potassium 3.2 meq/L (3.5-5.1); Sodium 136 meq/L (136-145)
[2018-03-20] MEDS ORDERED: Potassium Chloride 10 MEQ ER Capsule PO ONE (07:29)
[2018-03-20] MEDS ORDERED: Regadenoson Inj 0.4 MG/5 ML Syringe IV.PUSH ONE (08:00)
[2018-03-20] MEDS: Insulin NovoLOG Aspart Correctional Sugar Inj SQ SCH ×4 (08:37→20:57)
[2018-03-20] MEDS: Metoprolol Tartrate 25 MG Tablet PO SCH ×2 (08:37→20:55)
[2018-03-20] MEDS: Heparin - SQ 10,000 UNITS/ML Vial SQ SCH ×2 (08:37→20:54)
--- NOTE | 2018-03-20 09:19 | P.PNIM ---
Subjective Interval history: Patient seen and examined this morning at the bedside reports that chest pain is improving the last 24hrs. symptoms have improved and noticed only brief episode of CP on RIGHT side of chest overnight without SOB or palpitations no subjective fever or chills endorsed overnight and BC'x being drawn as i am at bedside right now to go for lexiscan this afternoon as per nurse continued RIGHT shoulder pain the last few days. no trauma but says it feels loose Physical Exam Vital signs: Last Vital Signs Temp 98.7 F 03/20/18 04:00 Pulse 91 H 03/20/18 05:01 Resp 23 03/20/18 05:01 BP 146/75 H 03/20/18 05:01 Pulse Ox 98 03/20/18 05:01 Intake & Output 03/18/18 03/19/18 03/20/18 03/21/18 06:59 06:59 06:59 06:59 Intake Total 50 / 50 3030 / 3030 1240 / 1240 Output Total 1500 / 1500 1825 / 1825 Balance 50 / 50 1530 / 1530 -585 / -585 Weight 94 kg 94.5 kg 102.5 kg gen: nad heent: eomi msk: 90 degree flexion with passive rom but limited active rom to 90 degree cvs:s1/s2, no murmur resp: CTA gi: soft, non tender, non distended ext: no edema or calf tenderness, lower ext. wounds on b/l legs ( chronic) Results Labs CBC & Chem 7: 03/20/18 04:38 03/20/18 04:38 Labs: Microbiology 03/18/18 04:55 Blood - Peripheral Aerobic Blood Culture - Preliminary Staphylococcus aureus 03/18/18 04:55 Blood - Peripheral Anaerobic Blood Culture - Preliminary No growth in 1 day 03/18/18 05:13 Blood - Peripheral Aerobic Blood Culture - Preliminary gram positive cocci 03/18/18 05:13 Blood - Peripheral Anaerobic Blood Culture - Preliminary No growth in 1 day Assessment and Plan Plan Patient is a very pleasant 47-year-old male with diabetes, hypertension, and depression who presents with chest pain noted to have mild elevation of troponin level admitted for cardiac evaluation. Hospital course complicated by gram-positive bacteremia on blood cultures. Cardiology: Chest pain Patient to go for Lexiscan scan today - EKG as needed chest pain - Telemetry monitoring 2D echo reviewed. Normal systolic function with ejection fraction of 60-65%, no definitive regional wall motion abnormality noted. Mild tricuspid valve regurgitation with normal pulmonary arterial pressures. Cardiology consulted and recommendations to be appreciated following official read of nuclear stress imaging MSK: Shoulder pain - RIGHT shoulder x-ray r/o dislocation or fracture infectious disease: Gram-positive bacteremia - BCX re-drawn at bedside this morning -Continue vancomycin 1 g every 12 hours Continue ceftezole and 2 g every 8 hours Continue to draw blood cultures until documented clearance of infection. Echo without evidence of vegetation at this time. Endocrinology: Diabetes type 2 Continue 5 units subcu Insulin sliding scale. Patient at goal over the last 24 hours 140-180 and patient Upon discharge patient should follow-up with pipeline technician and pets and pet supplies salesperson CoDE STATUS: Full code DVT prophylaxis: Heparin subcu Disposition: Medical surgery unit Progress Note: Quality VTE Deep Vein Thrombosis/Pulmonary Embolism Present on Admission: No
[2018-03-20] MEDS ORDERED: Potassium Chlor 20 mEq Premix 20 MEQ/100 ML PIGGYBACK IV.SIG ONE (10:00)
--- NOTE | 2018-03-20 10:22 | XR ---
EXAM DATE: 03/20/2018 9:43 AM EST AGE/SEX: 47 years / Male INDICATIONS: Pain without trauma on anterior proximal humerus. CLINICAL DATA: This is the patient's initial encounter. Patient reports that signs and symptoms have been present for 3 days and indicates a pain score of 8/10. MEDICAL/SURGICAL HISTORY: . Myocardial infarction. Diabetes. Hypertension. None. . COMPARISON: No prior exams available for comparison. FINDINGS: No definite fractures, or dislocations are identified. No definite lytic or sclerotic lesion is seen . The right glenohumeral joint spaces are well maintained. CONCLUSION: Unremarkable study. Electronically signed by: Sara Belle MD Board Certified Radiologist 03/20/2018 10:20 AM EST
--- NOTE | 2018-03-20 12:46 | NM ---
EXAM DATE: 03/20/2018 12:32 PM EST AGE/SEX: 47 years / Male INDICATIONS:Myocardial infarction. . Nausea, vomiting and constipation and later became short of teresa th. CLINICAL DATA: This is the patient's initial encounter. Patient reports that signs and symptoms have been present for 1 day and indicates a pain score of 0/10. MEDICAL/SURGICAL HISTORY: Diabetes mellitus type II. Hypercholesterolemia. Hypertension. Appe ndectomy. COMPARISON: No prior exams available for comparison. DOSE: 10.4 mCi Tc 99m Myoview at rest 30.2 mCi [id number] at stress 0.4 mg Lexiscan STRESS SYMPTOMS: Stomach cramps. EJECTION FRACTION: 59 % TECHNIQUE: The patient underwent pharmacologic stress with infusion of prescribed dose. Continuous ECG tracing was monitored during stress. Gated SPECT imaging was performed after stress and conventi onal SPECT imaging was performed at rest. The examination was performed on a SPECT/CT scanner, both attenuation and non-corrected datasets were reviewed. FINDINGS: Distribution: The maximum perfused segment at stress is in the anterior wall. Perfusion Study: The pattern of perfusion at stress demonstrates diaphragmatic attenuation involvin g the posterior basal wall and there is a fixed defect involving the inferior wall may be due to old infarction without any significant ischemia . Gated Study: There are intact wall motion and wall thickening without hypokinetic or dyskinetic segm ents. The ejection fraction is calculated at 59%. RISK CATEGORY: Low (<1% Annual Mortality Rate) CONCLUSION: 1. Negative examination. Electronically signed by: Sara Belle MD Board Certified Radiologist 03/20/2018 12:44 PM EST
--- NOTE | 2018-03-20 13:43 | ECG ---
Date Performed: 03/19/2018 Time Performed: 13:23:36 PTAGE: 47 years EKG: Sinus rhythm POSSIBLE LEFT ATRIAL ENLARGEMENT BORDERLINE ECG NO PREVIOUS TRACING DOCTOR: Asim Marin Interpretating Date/Time 03/20/2018 13:31:28
--- NOTE | 2018-03-20 18:27 | P.PNID ---
Subjective Remarks: both sets + MSSA, no LETY s to vanco yet pt denies any c/o afebrile Antibiotics: ancef vanco Allergies/Adverse Reactions: Allergies No Known Allergies Allergy (Verified 03/17/18 20:42) Objective Vital Signs 03/19/18 20:00 03/19/18 21:00 03/19/18 22:00 Temperature 98.2 F Pulse Rate 98 H 95 H 98 H Respiratory Rate 23 23 23 Blood Pressure 154/81 H 137/93 H Pulse Oximetry 99 99 98 03/19/18 22:01 03/19/18 23:00 03/20/18 00:00 Temperature 98.9 F Pulse Rate 99 H 91 H 93 H Respiratory Rate 21 23 23 Blood Pressure 163/81 H 157/90 H 132/63 Pulse Oximetry 99 99 96 03/20/18 01:00 03/20/18 02:00 03/20/18 03:00 Temperature Pulse Rate 91 H 87 89 Respiratory Rate 23 23 23 Blood Pressure 152/80 H 155/77 H 155/72 H Pulse Oximetry 96 96 97 03/20/18 04:00 03/20/18 05:00 03/20/18 05:01 Temperature 98.7 F Pulse Rate 87 89 91 H Respiratory Rate 23 23 23 Blood Pressure 166/86 H 146/75 H Pulse Oximetry 94 L 97 98 03/20/18 06:00 03/20/18 07:00 03/20/18 08:00 Temperature Pulse Rate 81 86 85 Respiratory Rate 22 24 15 Blood Pressure 151/77 H 152/78 H 165/80 H Pulse Oximetry 99 95 98 03/20/18 09:00 03/20/18 10:00 03/20/18 13:23 Temperature Pulse Rate 92 H 79 93 H Respiratory Rate 23 24 28 H Blood Pressure 154/77 H 125/72 Pulse Oximetry 98 97 03/20/18 13:25 03/20/18 14:00 03/20/18 14:02 Temperature 98.7 F Pulse Rate 93 H 92 H 92 H Respiratory Rate 14 38 H 23 Blood Pressure 166/87 H 179/84 H Pulse Oximetry 98 98 95 03/20/18 15:00 03/20/18 16:00 03/20/18 17:00 Temperature 98.7 F Pulse Rate 90 87 93 H Respiratory Rate 16 27 H 27 H Blood Pressure 149/71 H 153/83 H 154/79 H Pulse Oximetry 92 L 93 L 87 L Intake & Output 03/19/18 03/20/18 03/20/18 18:59 06:59 18:59 Intake Total 945 / 945 295 / 295 300 / 300 Output Total 1000 / 1000 825 / 825 Balance -55 / -55 -530 / -530 300 / 300 Weight 102.5 kg Intake: IV 345 / 345 55 / 55 300 / 300 Zosyn 3.375 GM Premix 3.375 gm 50 / 50 In 50 ml @ 100 mls/hr IV.SIG Q6H LI Rx#:[id number] Vancomycin Inj 1,000 MG In NS 250 / 250 10 / 10 250 / 250 Inj 250 ML @ 250 mls/hr IV.SIG Q12H LI Rx#:[id number] Ancef 2 GM Premix Inj 2 gm In 45 / 45 45 / 45 50 / 50 50 ml @ 100 mls/hr IV.SIG Q8H LI Rx#:[id number] Oral 600 / 600 240 / 240 Output: Urine 1000 / 1000 825 / 825 Other: Date of Last Bowel Movement 03/18/18 03/18/18 03/18/18 # Bowel Movements 0 03/18/18 05:13 Blood - Peripheral Aerobic Blood Culture - Preliminary Staphylococcus aureus 03/18/18 05:13 Blood - Peripheral Anaerobic Blood Culture - Preliminary No growth in 2 days 03/18/18 04:55 Blood - Peripheral Aerobic Blood Culture - Preliminary Staphylococcus aureus 03/18/18 04:55 Blood - Peripheral Anaerobic Blood Culture - Preliminary No growth in 2 days 03/20/18 08:56 Blood - Peripheral Aerobic Blood Culture - Pending 03/20/18 08:56 Blood - Peripheral Anaerobic Blood Culture - Pending 03/20/18 08:50 Blood - Peripheral Aerobic Blood Culture - Pending 03/20/18 08:50 Blood - Peripheral Anaerobic Blood Culture - Pending 03/18/18 11:00 Stool Stool Occult Blood (LETY) - Final Hemoccult negative Lab - Hematology Results 03/19/18 03/20/18 05:40 04:38 WBC 11.4 H 9.8 RBC 3.91 L 3.70 L Hgb 10.8 L 10.2 L Hct 32.3 L 29.7 L MCV 82.6 80.2 MCH 27.7 27.7 MCHC 33.5 34.5 RDW 13.4 13.2 Plt Count 192 241 MPV 8.1 7.9 Neut % (Auto) 76.9 H Lymph % (Auto) 14.9 [place]ascade % (Auto) 7.1 Eos % (Auto) 0.8 Baso % (Auto) 0.3 Neut # (Auto) 7.5 Lymph # (Auto) 1.5 [place]ascade # (Auto) 0.7 Eos # (Auto) 0.1 Baso # (Auto) 0.0 WBC Differential . Differential Comment Auto diff final Lab - Chemistry Results 03/18/18 03/19/18 03/19/18 20:33 08:35 10:59 Sodium Potassium Chloride Carbon Dioxide Anion Gap BUN Creatinine Estimated GFR POC Glucose 180 H 190 H 198 H Random Glucose Calcium Magnesium Troponin I 03/19/18 03/19/18 03/19/18 12:01 16:03 21:12 Sodium Potassium Chloride Carbon Dioxide Anion Gap BUN Creatinine Estimated GFR POC Glucose 191 H 188 H Random Glucose Calcium Magnesium Troponin I 0.27 H 03/20/18 03/20/18 03/20/18 04:38 08:31 17:49 Sodium 136 Potassium 3.2 L Chloride 100 Carbon Dioxide 28.5 Anion Gap 8 BUN 10 Creatinine 0.70 Estimated GFR Greater than 89 POC Glucose 162 H 224 H Random Glucose 159 H Calcium 8.5 Magnesium 2.0 Troponin I Imaging: ITS Impressions Pulmonary Perfusion Imaging 03/18/18 00:00 CONCLUSION: 1. Negative examination. Myocardial Perfusion Scan Nuc Med 03/20/18 00:00 CONCLUSION: 1. Negative examination. Shoulder X-Ray 03/20/18 00:00 CONCLUSION: Unremarkable study. Physical Exam: GENERAL: NAD SKIN: Warm and dry. No rash HEAD: Atraumatic. Normocephalic. EYES: Pupils equal and round. No scleral icterus. No injection or drainage. ENT: No nasal bleeding or discharge. Mucous membranes pink and moist. NECK: Trachea midline. No JVD. CARDIOVASCULAR: Regular rate and rhythm. No murmur RESPIRATORY: No accessory muscle use. Clear to auscultation. Breath sounds equal bilaterally. GASTROINTESTINAL: Abdomen soft, non-tender, nondistended. Hepatic and splenic margins not palpable. MUSCULOSKELETAL: Extremities without clubbing, cyanosis, or edema. No obvious deformities. NEUROLOGICAL: Awake and alert. No obvious cranial nerve deficits. Motor grossly within normal limits. Five out of 5 muscle strength in the arms and legs. Normal speech. PSYCHIATRIC: Appropriate mood and affect; Assessment and Plan - Plan MSSA bacteremia, , source is inapparent 2 echo w/o e/o vegetations will cont vanco and cefazolin for now will dc vanco if MSSA confirmed fu repeat blood clx consider JULIETA. Will darren Gomez
[2018-03-20] MEDS: Insulin Detemir Inj 1,000 UNIT/10 ML Vial SQ SCH (20:55)
[2018-03-21] MEDS: Ketorolac Inj 30 MG/ML (IVP) Vial IV.PUSH PRN (00:05)
[2018-03-21] MEDS: Vancomycin Inj 1,000 MG in Sodium Chlor 0.9% Inj 250 ML IV.SIG SCH ×2 (00:07→12:10)
[2018-03-21] MEDS: ceFAZolin 2 GM Premix Inj 2 GM/50 ML PIGGYBACK IV.SIG SCH ×3 (01:51→18:16)
[2018-03-21] MEDS: Chlorhexidine Gluconate 2% 1 Pack (2 Cloths) TOPICAL SCH (04:59)
[2018-03-21] MEDS: Metoprolol Tartrate 25 MG Tablet PO SCH ×2 (08:50→21:17)
[2018-03-21] MEDS: Heparin - SQ 10,000 UNITS/ML Vial SQ SCH ×2 (08:50→21:18)
[2018-03-21] MEDS: Insulin NovoLOG Aspart Correctional Sugar Inj SQ SCH ×4 (08:50→21:20)
[2018-03-21 09:05] LABS: Hematocrit 34.2 % (39.0-51.0); Hemoglobin 11.4 gm/dL (13.0-17.0); Mean Corpuscular HGB Conc 33.3 % (32.0-36.0); Mean Corpuscular Hemoglobin 27.2 pg (27.0-34.0); Mean Corpuscular Volume 81.8 fL (80.0-100.0); Mean Platelet Volume 7.8 fL (7.0-11.0); Platelet Count 277 th/mm3 (150-450); Red Blood Count 4.18 mil/mm3 (4.50-5.90); Red Cell Distribution Width 13.6 % (11.6-17.2); White Blood Count 9.7 th/mm3 (4.0-11.0)
[2018-03-21 09:23] LABS: Anion Gap 5 meq/L (5-15); Blood Urea Nitrogen 11 mg/dL (7-18); Calcium 8.8 mg/dL (8.5-10.1); Carbon Dioxide 30.9 meq/L (21.0-32.0); Chloride 99 meq/L (98-107); Glomerular Filtration Rate Greater Than 89 mL/min (>89); Glucose,Random 190 mg/dL (74-106); Potassium 3.6 meq/L (3.5-5.1); Sodium 135 meq/L (136-145)
[2018-03-21] MEDS ORDERED: Influenza (Quadrivalent) Vaccine 0.5 ML Syringe IM ONE (09:30)
[2018-03-21] MEDS ORDERED: Artificial Tears Opth Drops 15 ML Bottle EACH EYE PRN (10:00)
--- NOTE | 2018-03-21 12:28 | P.PNIM ---
Subjective Interval history: Patient reports that he is feeling better every day. He no longer has fevers, his right shoulder pain has improved, his chest pain is now mostly resolved. He denies any nausea and vomiting for the last 2 days. Physical Exam Vital signs: Last Vital Signs Temp 98.8 F 03/21/18 08:00 Pulse 71 03/21/18 10:00 Resp 20 03/21/18 10:00 BP 163/81 H 03/21/18 10:00 Pulse Ox 91 L 03/21/18 10:00 Intake & Output 03/19/18 03/20/18 03/21/18 03/22/18 06:59 06:59 06:59 06:59 Intake Total 3030 / 3030 1240 / 1240 1610 / 1610 47 / 47 Output Total 1500 / 1500 1825 / 1825 900 / 900 Balance 1530 / 1530 -585 / -585 710 / 710 47 / 47 Weight 94.5 kg 102.5 kg 94 kg Narrative: GENERAL: AAOx3, no acute distress SKIN: Warm and dry. No rashes HEAD: Atruamtic, normocephalic. EYES: No scleral icterus. No injection or drainage. ENT: Moist mucous membranes, patent nares, no erythema of oropharynx. NECK: Supple, trachea midline. No JVD or lymphadenopathy. Normal thyroid. CARDIOVASCULAR: Regular rate and rhythm. No murmurs, gallops, or rubs. RESPIRATORY: Breath sounds clear equal bilaterally. No crackles or wheezes. No accessory muscle use. GASTROINTESTINAL: Abdomen soft, non-tender, nondistended, normal active bowel sounds MUSCULOSKELETAL: No cyanosis, or edema. NEURO: CN II-XII grossly intact, no focal deficits, no slurring of speech Results Labs CBC & Chem 7: 03/21/18 08:43 03/21/18 08:43 Labs: Microbiology 03/20/18 08:56 Blood - Peripheral Aerobic Blood Culture - Preliminary gram positive cocci 03/20/18 08:56 Blood - Peripheral Anaerobic Blood Culture - Preliminary No growth in 1 day 03/20/18 08:50 Blood - Peripheral Aerobic Blood Culture - Preliminary No growth in 1 day 03/20/18 08:50 Blood - Peripheral Anaerobic Blood Culture - Preliminary No growth in 1 day 03/18/18 04:55 Blood - Peripheral Aerobic Blood Culture - Final Staphylococcus aureus 03/18/18 04:55 Blood - Peripheral Anaerobic Blood Culture - Preliminary No growth in 3 days 03/18/18 05:13 Blood - Peripheral Aerobic Blood Culture - Final Staphylococcus aureus 03/18/18 05:13 Blood - Peripheral Anaerobic Blood Culture - Preliminary No growth in 3 days Imaging Imaging: Impressions Myocardial Perfusion Scan Nuc Med 03/20/18 00:00 CONCLUSION: 1. Negative examination. Assessment and Plan Plan Patient is a very pleasant 47-year-old male with diabetes, hypertension, and depression who presents with chest pain noted to have mild elevation of troponin level admitted for cardiac evaluation. Hospital course complicated by gram-positive bacteremia on blood cultures. Gram-positive bacteremia Continue routine blood cultures until cultures show clearance of infection 2D echocardiogram showed no evidence of vegetation Consider JULIETA if cultures remain positive Continue vancomycin, ceftezole Appreciate infectious disease consulting Chest pain Patient underwent Lexiscan on 03/20/2018, results were negative 2D echocardiogram revealed ejection fraction of 60-65%, normal pulmonary arterial pressures Transient elevation in troponins likely secondary to cardiac strain from shortness of breath and tachycardia Patient may be transferred out of the ICU, off telemetry Appreciate cardiology consult Right shoulder pain Plain film shows no dislocation or fracture Patient reports shoulder is feeling improved today Encourage routine activities Type 2 diabetes Accu-Cheks with sliding scale insulin coverage Diabetic diet DVT Prophylaxis Heparin Progress Note: Quality VTE Deep Vein Thrombosis/Pulmonary Embolism Present on Admission: No
[2018-03-21] MEDS: Insulin Detemir Inj 1,000 UNIT/10 ML Vial SQ SCH (21:18)
[2018-03-22] MEDS: Vancomycin Inj 1,000 MG in Sodium Chlor 0.9% Inj 250 ML IV.SIG SCH ×2 (00:32→13:04)
[2018-03-22] MEDS: ceFAZolin 2 GM Premix Inj 2 GM/50 ML PIGGYBACK IV.SIG SCH ×3 (02:11→17:16)
[2018-03-22 05:45] LABS: Hematocrit 29.3 % (39.0-51.0); Hemoglobin 10.2 gm/dL (13.0-17.0); Mean Corpuscular HGB Conc 34.8 % (32.0-36.0); Mean Corpuscular Hemoglobin 27.9 pg (27.0-34.0); Mean Corpuscular Volume 80.2 fL (80.0-100.0); Mean Platelet Volume 7.9 fL (7.0-11.0); Platelet Count 296 th/mm3 (150-450); Red Blood Count 3.66 mil/mm3 (4.50-5.90); Red Cell Distribution Width 13.7 % (11.6-17.2); White Blood Count 9.9 th/mm3 (4.0-11.0)
[2018-03-22] MEDS: Chlorhexidine Gluconate 2% 1 Pack (2 Cloths) TOPICAL SCH (06:00)
[2018-03-22 06:06] LABS: Anion Gap 7 meq/L (5-15); Blood Urea Nitrogen 10 mg/dL (7-18); Calcium 8.1 mg/dL (8.5-10.1); Chloride 103 meq/L (98-107); Glomerular Filtration Rate Greater Than 89 mL/min (>89); Glucose,Random 190 mg/dL (74-106); Potassium 3.3 meq/L (3.5-5.1); Sodium 138 meq/L (136-145)
[2018-03-22] MEDS: Insulin NovoLOG Aspart Correctional Sugar Inj SQ SCH ×4 (09:03→22:21)
[2018-03-22] MEDS: Heparin - SQ 10,000 UNITS/ML Vial SQ SCH ×2 (09:05→21:25)
[2018-03-22] MEDS: Metoprolol Tartrate 25 MG Tablet PO SCH ×2 (09:05→21:25)
--- NOTE | 2018-03-22 14:22 | P.PNIM ---
Subjective Interval history: Follow-up for MSSA bacteremia, diabetes mellitus. Patient is currently doing well. Denies any chest pain, shortness of breath, fever or chills. Physical Exam Vital signs: Last Vital Signs Temp 97.8 F 03/22/18 12:00 Pulse 76 03/22/18 12:00 Resp 13 03/22/18 12:00 BP 140/76 03/22/18 12:00 Pulse Ox 96 03/22/18 12:00 Intake & Output 03/20/18 03/21/18 03/22/18 03/23/18 06:59 06:59 06:59 06:59 Intake Total 1240 / 1240 1610 / 1610 1012 / 1012 50 / 50 Output Total 1825 / 1825 900 / 900 Balance -585 / -585 710 / 710 1012 / 1012 50 / 50 Weight 102.5 kg 94 kg 90.1 kg Narrative: GENERAL: AAOx3, no acute distress SKIN: Warm and dry. Multiple old skin lesions noted on the lower ext. HEAD: Atruamtic, normocephalic. EYES: No scleral icterus. No injection or drainage. ENT: Moist mucous membranes, patent nares, no erythema of oropharynx. NECK: Supple, trachea midline. No JVD or lymphadenopathy. Normal thyroid. CARDIOVASCULAR: Regular rate and rhythm. No murmurs, gallops, or rubs. RESPIRATORY: Breath sounds clear equal bilaterally. No crackles or wheezes. No accessory muscle use. GASTROINTESTINAL: Abdomen soft, non-tender, nondistended, normal active bowel sounds MUSCULOSKELETAL: No cyanosis, or edema. NEURO: CN II-XII grossly intact, no focal deficits, no slurring of speech Results Labs CBC & Chem 7: 03/22/18 04:21 03/22/18 04:21 Labs: Microbiology 03/20/18 08:56 Blood - Peripheral Aerobic Blood Culture - Final Staphylococcus aureus 03/20/18 08:56 Blood - Peripheral Anaerobic Blood Culture - Preliminary No growth in 2 days 03/20/18 08:50 Blood - Peripheral Aerobic Blood Culture - Preliminary No growth in 2 days 03/20/18 08:50 Blood - Peripheral Anaerobic Blood Culture - Preliminary No growth in 2 days 03/18/18 04:55 Blood - Peripheral Aerobic Blood Culture - Final Staphylococcus aureus 03/18/18 04:55 Blood - Peripheral Anaerobic Blood Culture - Preliminary No growth in 4 days 03/18/18 05:13 Blood - Peripheral Aerobic Blood Culture - Final Staphylococcus aureus 03/18/18 05:13 Blood - Peripheral Anaerobic Blood Culture - Preliminary No growth in 4 days Imaging Imaging: Echo 03/18/2018 Normal left ventricular size. Wall thickness is measured at the upper limits of normal. The left ventricular systolic function is normal with an estimated ejection fraction in the range of 60-65%. No definite regional wall motion abnormalities are present. There is mild tricuspid valve regurgitation. The estimated pulmonary arterial pressure is 25 mmHg Assessment and Plan Plan Patient is a very pleasant 47-year-old male with diabetes, hypertension, and depression who presents with chest pain noted to have mild elevation of troponin level admitted for cardiac evaluation. Hospital course complicated by gram-positive bacteremia on blood cultures. MSSA bacteremia Blood cx from 03/20/2018 positive for GPC. Repeat Blood culture today. 2D echocardiogram showed no evidence of vegetation JULIETA tomorrow, d/w Cardiology. Discontinue vancomycin and continue cefazolin. Appreciate infectious disease consulting Chest pain Patient underwent Lexiscan on 03/20/2018, results were negative 2D echocardiogram revealed ejection fraction of 60-65%, normal pulmonary arterial pressures Transient elevation in troponins likely secondary to cardiac strain from shortness of breath and tachycardia Appreciate cardiology consult Type 2 diabetes Increase Levemir from 5 units to 10 units nightly and continue sliding scale insulin. Diabetic diet Full code, heparin Discharge plan: Discussed scenario is if JULIETA shows no vegetation, patient can likely go home with IV antibiotics for 2 weeks. Cefazolin would be preferred but If okay with ID, we may consider Ceftriaxone for patient's comfort. Progress Note: Quality VTE Deep Vein Thrombosis/Pulmonary Embolism Present on Admission: No
[2018-03-22] MEDS: Insulin Detemir Inj 1,000 UNIT/10 ML Vial SQ SCH (21:31)
[2018-03-23] MEDS: ceFAZolin 2 GM Premix Inj 2 GM/50 ML PIGGYBACK IV.SIG SCH ×3 (02:35→18:41)
[2018-03-23] MEDS: Insulin NovoLOG Aspart Correctional Sugar Inj SQ SCH ×4 (09:08→21:00)
[2018-03-23] MEDS: Metoprolol Tartrate 25 MG Tablet PO SCH ×2 (09:24→20:57)
[2018-03-23] MEDS: Heparin - SQ 10,000 UNITS/ML Vial SQ SCH ×2 (09:25→20:58)
--- NOTE | 2018-03-23 13:31 | P.PNCA ---
Subjective Interval history: Denies CP, SOB. Medications and Allergies Active Medications: Active Medications Acetaminophen (Tylenol) 650 mg PO Q4H PRN PRN Reason: Temp > 100.4 Artificial Tears (Tears Naturale Opth Drops) 1 drop EACH EYE Q4H PRN PRN Reason: DRY EYE(S) Aspirin (Aspirin Chew) 81 mg PO DAILY [facility] Last Admin: 03/23/18 09:24 Dose: 81 mg Atorvastatin Calcium (Lipitor) 40 mg PO [facility] Last Admin: 03/22/18 21:25 Dose: 40 mg Dextrose (D50w Vial) 50 ml IV.PUSH UNSCH PRN PRN Reason: PER HYPOGLYCEMIA PROTOCOL Glucagon (Glucagon Inj) 1 mg OTHER PRN PRN PRN Reason: for Hypoglycemia Protocol Heparin Sodium (Porcine) (Heparin Inj) 5,000 units SQ Q12H [facility] Last Admin: 03/23/18 09:25 Dose: 5,000 units Cefazolin Sodium/Dextrose (Ancef 2 Gm Premix Inj) 2 gm in 50 mls @ 100 mls/hr IV.SIG Q8H [facility] Last Infusion: 03/23/18 03:05 Dose: Infused Insulin Aspart (Novolog Insulin Correctional Sugar Inj) 0 unit SQ [facility]; Protocol Last Admin: 03/23/18 09:08 Dose: Not Given Insulin Detemir (Levemir Inj) 10 unit SQ [facility] Last Admin: 03/22/18 21:31 Dose: 10 unit Ketorolac Tromethamine (Toradol Inj) 15 mg IV.PUSH Q6H PRN PRN Reason: Acute Pain Last Admin: 03/21/18 00:05 Dose: 15 mg Metoprolol Tartrate (Lopressor) 12.5 mg PO BID [facility] Last Admin: 03/23/18 09:24 Dose: 12.5 mg Ondansetron HCl (Zofran Inj) 4 mg IV.PUSH Q6H PRN PRN Reason: NAUSEA OR VOMITING Sodium Chloride (Ns Flush) 2 ml IV.FLUSH BID [facility] Last Admin: 03/23/18 09:25 Dose: 2 ml Sodium Chloride (Ns Flush) 2 ml IV.FLUSH PRN PRN PRN Reason: FLUSH AFTER USING IV ACCESS Allergies Allergy/AdvReac Type Severity Reaction Status Date / Time No Known Allergies Allergy Verified 03/17/18 20:42 Home Medications Medication Instructions Recorded Confirmed Type aspirin [Aspirin Low Dose] 81 mg PO DAILY 01/26/18 03/20/18 History gabapentin 100 mg PO TID 01/26/18 03/20/18 History insulin glargine [Lantus U-100 60 unit SUBCUT BID 01/26/18 03/21/18 History Insulin] lisinopril 10 mg PO DAILY 01/26/18 03/20/18 History pravastatin 40 mg PO DAILY 01/26/18 03/20/18 History sertraline [Zoloft] 50 mg PO DAILY 01/26/18 03/20/18 History nortriptyline 25 mg PO HS 03/20/18 03/20/18 History Physical Exam Vital signs: Vital Signs 03/22/18 16:00 03/22/18 20:00 03/23/18 00:00 Temperature 98.1 F 98.1 F 98.1 F Pulse Rate 74 100 H 81 Respiratory Rate 16 18 17 Blood Pressure 158/96 H 144/71 H 164/96 H Pulse Oximetry 97 95 96 03/23/18 04:00 03/23/18 08:00 Temperature 98 F 98.3 F Pulse Rate 73 79 Respiratory Rate 18 18 Blood Pressure 161/88 H 165/84 H Pulse Oximetry 97 97 Intake & Output 03/22/18 03/23/18 03/23/18 18:59 06:59 18:59 Intake Total 930 / 930 170 / 170 Balance 930 / 930 170 / 170 Weight 90.1 kg Intake: IV 350 / 350 50 / 50 Vancomycin Inj 1,000 MG In NS 250 / 250 Inj 250 ML @ 250 mls/hr IV.SIG Q12H [facility] Rx#:[id number] Ancef 2 GM Premix Inj 2 gm In 100 / 100 50 / 50 50 ml @ 100 mls/hr IV.SIG Q8H [facility] Rx#:[id number] Oral 580 / 580 120 / 120 Other: # Voids 3 2 Date of Last Bowel Movement 03/21/18 - Constitutional no acute distress - Routine Neck Exam Absent: JVD - Routine Respiratory Exam Present: CTA bilaterally - Routine Cardiovascular Exam Present: RRR, S1, S2. Absent: murmur, gallop - Routine Abdominal Exam Present: soft, normoactive bowel sounds. Absent: tenderness, organomegaly - Routine Extremities Exam Absent: cyanosis, clubbing, edema Results 03/22/18 04:21 03/22/18 04:21 CBC 03/22/18 Range/Units 04:21 WBC 9.9 (4.0-11.0) th/mm3 RBC 3.66 L (4.50-5.90) mil/mm3 Hgb 10.2 L (13.0-17.0) gm/dL Hct 29.3 L (39.0-51.0) % Plt Count 296 (150-450) th/mm3 Comprehensive Metabolic Panel 03/22/18 Range/Units 04:21 Sodium 138 (136-145) meq/L Potassium 3.3 L (3.5-5.1) meq/L Chloride 103 (98-107) meq/L Carbon Dioxide 28.0 (21.0-32.0) meq/L BUN 10 (7-18) mg/dL Creatinine 0.75 (0.60-1.30) mg/dL Calcium 8.1 L (8.5-10.1) mg/dL Intake and Output 03/22/18 03/23/18 03/23/18 22:59 06:59 14:59 Intake Total 630 / 630 170 / 170 Balance 630 / 630 170 / 170 Intake: IV 50 / 50 50 / 50 Ancef 2 GM Premix Inj 2 gm In 50 / 50 50 / 50 50 ml @ 100 mls/hr IV.SIG Q8H [facility] Rx#:[id number] Oral 580 / 580 120 / 120 Other: # Voids 3 2 Weight 90.1 kg Assessment and Plan - Assessment (1) Bacteremia Code(s): R78.81 - Bacteremia Status: Acute Plan: Unremarkable JULIETA today. No evidence for endocarditis. (2) Coronary artery disease Code(s): I25.10 - Atherosclerotic heart disease of [place] coronary artery without angina pectoris Status: Chronic Plan: Stable. No angina. Normal nuclear stress test this admission. No evidence for prior [place]. - Plan Code Status: full code (2) Coronary artery disease Qualifiers: Coronary Disease-Associated Artery/Lesion type: [place] artery [place] vs. transplanted heart: [place] heart Associated angina: without angina Qualified Code(s): I25.10 - Atherosclerotic heart disease of [place] coronary artery without angina pectoris
--- NOTE | 2018-03-23 16:40 | P.PNIM ---
Subjective Interval history: Follow-up for MSSA bacteremia, diabetes mellitus. Patient is doing well. Underwent JULIETA study today, No endocarditis. No fever, chills. Inquires about going home. Physical Exam Vital signs: Last Vital Signs Temp 98.3 F 03/23/18 08:00 Pulse 73 03/23/18 12:00 Resp 18 03/23/18 08:00 BP 165/84 H 03/23/18 08:00 Pulse Ox 97 03/23/18 08:00 Intake & Output 03/21/18 03/22/18 03/23/18 03/24/18 06:59 06:59 06:59 06:59 Intake Total 1610 / 1610 1012 / 1012 1100 / 1100 Output Total 900 / 900 Balance 710 / 710 1012 / 1012 1100 / 1100 Weight 94 kg 90.1 kg 90.1 kg Narrative: GENERAL: AAOx3, no acute distress SKIN: Warm and dry. Multiple old skin lesions noted on the lower ext. HEAD: Atruamtic, normocephalic. EYES: No scleral icterus. No injection or drainage. ENT: Moist mucous membranes, patent nares, no erythema of oropharynx. NECK: Supple, trachea midline. No JVD or lymphadenopathy. Normal thyroid. CARDIOVASCULAR: Regular rate and rhythm. No murmurs, gallops, or rubs. RESPIRATORY: Breath sounds clear equal bilaterally. No crackles or wheezes. No accessory muscle use. GASTROINTESTINAL: Abdomen soft, non-tender, nondistended, normal active bowel sounds MUSCULOSKELETAL: No cyanosis, or edema. NEURO: CN II-XII grossly intact, no focal deficits, no slurring of speech Results Labs CBC & Chem 7: 03/22/18 04:21 03/22/18 04:21 Labs: Microbiology 03/22/18 18:00 Blood - Peripheral Aerobic Blood Culture - Preliminary No growth in 1 day 03/22/18 18:00 Blood - Peripheral Anaerobic Blood Culture - Preliminary No growth in 1 day 03/20/18 08:56 Blood - Peripheral Aerobic Blood Culture - Final Staphylococcus aureus 03/20/18 08:56 Blood - Peripheral Anaerobic Blood Culture - Preliminary No growth in 3 days 03/20/18 08:50 Blood - Peripheral Aerobic Blood Culture - Preliminary No growth in 3 days 03/20/18 08:50 Blood - Peripheral Anaerobic Blood Culture - Preliminary No growth in 3 days 03/18/18 04:55 Blood - Peripheral Aerobic Blood Culture - Final Staphylococcus aureus 03/18/18 04:55 Blood - Peripheral Anaerobic Blood Culture - Final No growth in 5 days 03/18/18 05:13 Blood - Peripheral Aerobic Blood Culture - Final Staphylococcus aureus 03/18/18 05:13 Blood - Peripheral Anaerobic Blood Culture - Final No growth in 5 days Assessment and Plan (1) Bacteremia: Code(s): R78.81 - Bacteremia Status: Acute (2) Coronary artery disease: Code(s): I25.10 - Atherosclerotic heart disease of [place] coronary artery without angina pectoris Status: Chronic Plan Patient is a very pleasant 47-year-old male with diabetes, hypertension, and depression who presents with chest pain noted to have mild elevation of troponin level admitted for cardiac evaluation. Hospital course complicated by gram-positive bacteremia on blood cultures. MSSA bacteremia Blood cx from 03/20/2018 positive for GPC. Repeat Blood culture from 03/22/2017 negative so far. 2D echocardiogram showed no evidence of vegetation JULIETA shows NO endocarditis. Discontinued vancomycin and continue cefazolin. We will wait for 48 hour blood cx results tomorrow (03/24/2018). Will also discuss with ID. Since arrange home health would be difficult, one option would be to consider a Midline and then have patient come to the infusion center for Ceftriaxone 2g Qday X 14 days. Another posibility would be to consider PO meds such as Dicloxacillin. Chest pain Patient underwent Lexiscan on 03/20/2018, results were negative 2D echocardiogram revealed ejection fraction of 60-65%, normal pulmonary arterial pressures Transient elevation in troponins likely secondary to cardiac strain from shortness of breath and tachycardia Appreciate cardiology consult Type 2 diabetes Increase Levemir from 5 units to 10 units nightly and continue sliding scale insulin. Diabetic diet Full code, heparin Discharge plan: Potential discharge tomorrow 03/24/2017, depending on final recs from ID (Dr. Santana Blanca). Progress Note: Quality VTE Deep Vein Thrombosis/Pulmonary Embolism Present on Admission: No _ (1) Coronary artery disease Qualifiers: Coronary Disease-Associated Artery/Lesion type: [place] artery [place] vs. transplanted heart: [place] heart Associated angina: without angina Qualified Code(s): I25.10 - Atherosclerotic heart disease of [place] coronary artery without angina pectoris
[2018-03-23] MEDS: Insulin Detemir Inj 1,000 UNIT/10 ML Vial SQ SCH (20:58)
[2018-03-24] MEDS: ceFAZolin 2 GM Premix Inj 2 GM/50 ML PIGGYBACK IV.SIG SCH ×3 (03:59→18:35)
[2018-03-24] MEDS: Insulin NovoLOG Aspart Correctional Sugar Inj SQ SCH ×4 (09:06→20:49)
[2018-03-24] MEDS: Metoprolol Tartrate 25 MG Tablet PO SCH ×2 (09:06→20:48)
[2018-03-24] MEDS: Heparin - SQ 10,000 UNITS/ML Vial SQ SCH ×2 (09:06→20:48)
--- NOTE | 2018-03-24 09:26 | P.PNIM ---
Subjective Interval history: Patient laying down in bed. Currently does not have any acute complaints. Physical Exam Vital signs: Vital Signs 03/23/18 12:00 03/23/18 16:00 03/23/18 20:00 Temperature 98.3 F 98.1 F Pulse Rate 73 82 85 Respiratory Rate 18 19 Blood Pressure 165/84 H 168/90 H Pulse Oximetry 96 96 03/23/18 23:28 03/24/18 00:00 03/24/18 04:00 Temperature 99.2 F 98.4 F Pulse Rate 82 80 88 Respiratory Rate 17 17 Blood Pressure 162/90 H 162/78 H Pulse Oximetry 94 L 94 L 03/24/18 08:00 Temperature 98.1 F Pulse Rate 76 Respiratory Rate 17 Blood Pressure 158/95 H Pulse Oximetry 96 Intake & Output 03/23/18 03/24/18 03/24/18 18:59 06:59 18:59 Intake Total 50 / 50 520 / 520 Balance 50 / 50 520 / 520 Weight 92.6 kg Intake: IV 50 / 50 100 / 100 Ancef 2 GM Premix Inj 2 gm In 50 / 50 100 / 100 50 ml @ 100 mls/hr IV.SIG Q8H [facility] Rx#:[id number] Oral 420 / 420 Other: # Voids 2 3 Date of Last Bowel Movement 03/21/18 03/21/18 # Bowel Movements 1 Narrative: General patient in no acute distress, no chest pain HEENT extraocular movements are intact, clear oropharyngeal mucosa, no JVD Cardiovascular S1-S2 audible Respiratory clear to auscultation bilaterally Abdomen soft, nontender, nondistended, normal bowel sounds Extremities multiple wounds of bilateral lower extremities as well as left shoulder, no active drainage. Neuro no focal neurological deficits. Results - Labs CBC & Chem 7: 03/22/18 04:21 03/22/18 04:21 Laboratory Results - last 24 hr 03/23/18 03/23/18 03/23/18 12:26 17:37 19:50 POC Glucose 181 H 252 H 224 H 03/24/18 08:00 POC Glucose 320 H Microbiology 03/22/18 18:00 Blood - Peripheral Aerobic Blood Culture - Preliminary No growth in 1 day 03/22/18 18:00 Blood - Peripheral Anaerobic Blood Culture - Preliminary No growth in 1 day 03/20/18 08:56 Blood - Peripheral Aerobic Blood Culture - Final Staphylococcus aureus 03/20/18 08:56 Blood - Peripheral Anaerobic Blood Culture - Preliminary No growth in 3 days 03/20/18 08:50 Blood - Peripheral Aerobic Blood Culture - Preliminary No growth in 3 days 03/20/18 08:50 Blood - Peripheral Anaerobic Blood Culture - Preliminary No growth in 3 days 03/18/18 04:55 Blood - Peripheral Aerobic Blood Culture - Final Staphylococcus aureus 03/18/18 04:55 Blood - Peripheral Anaerobic Blood Culture - Final No growth in 5 days 03/18/18 05:13 Blood - Peripheral Aerobic Blood Culture - Final Staphylococcus aureus 03/18/18 05:13 Blood - Peripheral Anaerobic Blood Culture - Final No growth in 5 days Assessment and Plan - Assessment (1) Bacteremia Code(s): R78.81 - Bacteremia Status: Acute (2) Coronary artery disease Code(s): I25.10 - Atherosclerotic heart disease of [place] coronary artery without angina pectoris Status: Chronic - Plan This patient is a 47-year-old male with a diagnosis of insulin-dependent diabetes, hypertension, history of PA at age 40, no stents. Patient presented to the emergency part with complaints of nausea vomiting that have been ongoing since this past Friday. He also complained of some shortness of breath during that time. 1. MSSA bacteremia The patient's blood cultures from 03/20/2018 are positive for GPC. Repeat blood cultures from 03/22/2018 are negative. The patient underwent JULIETA which not show any evidence of endocarditis. Continue IV cefazolin Infectious disease is following the patient, I will follow-up with the recommendations today to see if the patient can be discharged and scheduled with home health for IV antibiotics for 14 days. 2. Elevated troponin Cardiology following the patient, JULIETA done showed no evidence of endocarditis. Lexiscan was done which was normal, no active chest pain. Continue aspirin, continue beta-[place] 3. Hypertension Patient elevated blood pressure systolic in the 150s. Metoprolol dose was increased today. We will continue to monitor his blood pressure and adjust his medications as needed. 4. Insulin-dependent diabetes Patient's blood sugar running in the 200s. Levemir dose increased. We will continue to monitor his blood sugars and adjust his meds as needed. DVT prophylaxis, patient is currently on heparin. (2) Coronary artery disease Qualifiers: Coronary Disease-Associated Artery/Lesion type: [place] artery [place] vs. transplanted heart: [place] heart Associated angina: without angina Qualified Code(s): I25.10 - Atherosclerotic heart disease of [place] coronary artery without angina pectoris
--- NOTE | 2018-03-24 13:46 | ECHRPT ---
Indication: POSS SEPSIS,ENDOCARDITIS CONCLUSIONS Normal transesophageal echo. No evidence for endocarditis. BP: / HR: Rhythm: Technical Quality: Medications Complications Proc. Components FINDINGS LEFT VENTRICLE Normal left ventricular size and wall thickness. The left ventricular systolic function is normal wi th an estimated ejection fraction in the range of 60-65%. No regional wall motion abnormalities are presen t. RIGHT VENTRICLE Normal right ventricular size and systolic function. LEFT ATRIUM The left atrial size is normal. RIGHT ATRIUM The right atrial size is normal. ATRIAL SEPTUM Normal atrial septal thickness without atrial level shunting by limited color doppler interrogation. AORTA The aortic root and proximal ascending aorta are normal in size on limited imaging. MITRAL VALVE Structurally normal mitral valve. Trace mitral valve regurgitation. AORTIC VALVE Trileaflet aortic valve. No aortic valve stenosis or regurgitation. TRICUSPID VALVE Structurally normal tricuspid valve. No tricuspid valve stenosis or regurgitation. VESSELS The inferior vena cava is normal in size. PULMONARY VALVE The pulmonary valve is not well visualized. PERICADIUM No pericardial effusion. Jeffrey Gomez MD (Electronically Signed) Final Date:24 March 2018 13:45
--- NOTE | 2018-03-24 15:43 | P.PNID ---
Subjective Remarks: doing fine afebrile repeat BC on Mar 22 is negative Had some R shoulder pain yday, X ray negative, pain went away Antibiotics: ancef vanco Allergies/Adverse Reactions: Allergies No Known Allergies Allergy (Verified 03/17/18 20:42) Objective Vital Signs 03/23/18 16:00 03/23/18 20:00 03/23/18 23:28 Temperature 98.3 F 98.1 F 99.2 F Pulse Rate 82 85 82 Respiratory Rate 18 19 17 Blood Pressure 165/84 H 168/90 H 162/90 H Pulse Oximetry 96 96 94 L 03/24/18 00:00 03/24/18 04:00 03/24/18 08:00 Temperature 98.4 F 98.1 F Pulse Rate 80 88 76 Respiratory Rate 17 17 Blood Pressure 162/78 H 158/95 H Pulse Oximetry 94 L 96 03/24/18 12:00 Temperature 97.9 F Pulse Rate 78 Respiratory Rate 18 Blood Pressure 154/98 H Pulse Oximetry 97 Intake & Output 03/23/18 03/24/18 03/24/18 18:59 06:59 18:59 Intake Total 50 / 50 520 / 520 50 / 50 Balance 50 / 50 520 / 520 50 / 50 Weight 92.6 kg Intake: IV 50 / 50 100 / 100 50 / 50 Ancef 2 GM Premix Inj 2 gm In 50 / 50 100 / 100 50 / 50 50 ml @ 100 mls/hr IV.SIG Q8H [facility] Rx#:[id number] Oral 420 / 420 Other: # Voids 2 3 Date of Last Bowel Movement 03/21/18 03/21/18 03/24/18 # Bowel Movements 1 03/22/18 18:00 Blood - Peripheral Aerobic Blood Culture - Preliminary No growth in 2 days 03/22/18 18:00 Blood - Peripheral Anaerobic Blood Culture - Preliminary No growth in 2 days 03/20/18 08:56 Blood - Peripheral Aerobic Blood Culture - Final Staphylococcus aureus 03/20/18 08:56 Blood - Peripheral Anaerobic Blood Culture - Preliminary No growth in 4 days 03/20/18 08:50 Blood - Peripheral Aerobic Blood Culture - Preliminary No growth in 4 days 03/20/18 08:50 Blood - Peripheral Anaerobic Blood Culture - Preliminary No growth in 4 days 03/18/18 04:55 Blood - Peripheral Aerobic Blood Culture - Final Staphylococcus aureus 03/18/18 04:55 Blood - Peripheral Anaerobic Blood Culture - Final No growth in 5 days 03/18/18 05:13 Blood - Peripheral Aerobic Blood Culture - Final Staphylococcus aureus 03/18/18 05:13 Blood - Peripheral Anaerobic Blood Culture - Final No growth in 5 days Lab - Chemistry Results 03/22/18 03/22/18 03/23/18 17:56 21:27 08:07 POC Glucose 199 H 302 H 205 H 03/23/18 03/23/18 03/23/18 12:26 17:37 19:50 POC Glucose 181 H 252 H 224 H 03/24/18 03/24/18 08:00 12:21 POC Glucose 320 H 238 H Imaging: ITS Impressions Pulmonary Perfusion Imaging 03/18/18 00:00 CONCLUSION: 1. Negative examination. Myocardial Perfusion Scan Nuc Med 03/20/18 00:00 CONCLUSION: 1. Negative examination. Shoulder X-Ray 03/20/18 00:00 CONCLUSION: Unremarkable study. Physical Exam: GENERAL: NAD SKIN: Warm and dry. No rash HEAD: Atraumatic. Normocephalic. EYES: Pupils equal and round. No scleral icterus. No injection or drainage. ENT: No nasal bleeding or discharge. Mucous membranes pink and moist. NECK: Trachea midline. No JVD. CARDIOVASCULAR: Regular rate and rhythm. No murmur RESPIRATORY: No accessory muscle use. Clear to auscultation. Breath sounds equal bilaterally. GASTROINTESTINAL: Abdomen soft, non-tender, nondistended. MUSCULOSKELETAL: Extremities without clubbing, cyanosis, or edema. NEUROLOGICAL: Awake and alert. Motor grossly within normal limits. Five out of 5 muscle strength in the arms and legs. Normal speech. PSYCHIATRIC: Appropriate mood and affect; Assessment and Plan - Plan MSSA bacteremia, source is inapparent, bacteremia high grade and sustained APparently multiple skin abscess, though non is activ eat thios point JULIETA negative NO other c/o to suggest musculoskeletal source OCnt 4 weeks of IV abx We can do Ceftriaxone @ infusion center will repeat blood cultures after completed abx course if ongoing bactermeia, will need additional w/u for other source
--- NOTE | 2018-03-24 15:45 | P.DCO ---
Post Hospital Infusion Therapy - Infusion Therapy Location of Infusion Therapy: Ambulatory Infusion Therapy Order - Patient Information Patient Weight: 92.6 kg - Diagnosis (1) Bacteremia Code(s): R78.81 - Bacteremia - Administer Medication Ceftriaxone Dose: 2 grams IV Directions: q 24 hours Start Treatment: 03/24/18 Stop Treatment: 04/18/18 - Additional Information Venous Access: PICC Line Additional Instructions: [x] Peripheral flush and dressing changes per protocol [x] Implanted port and central assembly line brazer: * Implanted port: 10 ml Normal Saline followed by 5 ml Heparin 100 units/ml Heparin flush after each use and monthly to maintain. [] May leave port accessed during therapy. [] May leave peripheral site accessed for duration of therapy. [x] If patient has SOB or respiratory distress, check oxygen saturation. If less than 90% or clinical signs of respiratory distress, administer oxygen at 2 L/min. via nasal cannula and notify physician. [x] Anaphylaxis/Reaction orders: * Stop infusion. * Keep IV line open with saline flush. * Notify physician. * Monitor vital signs every 15 minutes until symptoms resolve. * Check Oxygen saturation; Oxygen at 2 L/min. via nasal cannula if less than 90% or clinical signs of respiratory distress. * Administer diphenhydramine (Benadryl) 25 mg IV STAT, (unless patient has received as pre-med). May repeat once, if necessary. * Solu-Cortef 250 mg IVP over 30-60 seconds, use 100 mg vials for each dissolution. * Epinephrine (1mg/1 ml) 0.3 mg subcutaneously or IVP now with any signs of respiratory distress. * Check with physician for new additional pre-med orders if patient is re- challenged or re-treated. [x] May remove PICC line when treatment complete, after confirming with Physician. [x] If the patient is admitted to the hospital, the ED, or transferred via [facility] , complete transfer form including medication reconciliation order sheet. Weekly Labs: CBC w/diff, CMP - Case Management Consult Case Management Consult-IVF: Yes - Patient Information Allergies No Known Allergies Allergy (Verified 03/17/18 20:42)
[2018-03-24] MEDS ORDERED: Insulin Detemir Inj 1,000 UNIT/10 ML Vial SQ SCH (21:00)
[2018-03-25] MEDS: ceFAZolin 2 GM Premix Inj 2 GM/50 ML PIGGYBACK IV.SIG SCH ×2 (02:30→09:19)
[2018-03-25] MEDS: Heparin - SQ 10,000 UNITS/ML Vial SQ SCH (08:23)
[2018-03-25] MEDS: Metoprolol Tartrate 25 MG Tablet PO SCH (08:24)
[2018-03-25] MEDS: Insulin NovoLOG Aspart Correctional Sugar Inj SQ SCH (08:24)
[2018-03-25 09:11] VITALS: BP 154/86; RESP 18; TEMP 98; O2SAT 93
--- NOTE | 2018-03-25 09:25 | P.DS ---
Date of admission: 03/18/18 02:55 Primary care physician: UNKNOWN Brief History from admission: 47 y/o male with a history of DM, HTN, and an NC (age 40, no stents) presented to the ED with complaints of Nausea and vomiting since Friday, no BM since and shortness of breath. He states he has not been able to keep anything down and feels he can not catch his breath. Denies any chest pain, abdominal pain, abdominal distention, dysuria, cough, or fever. He does have chills. Patient was subsequently found to have positive blood cultures and elevated troponin. DS: Diagnosis - Discharge Diagnosis (1) Bacteremia Status: Acute (2) Coronary artery disease Status: Chronic DS: Medications - Discharge Medications Prescriptions: metoprolol tartrate 25 mg PO BID #60 tab DS: Summary Hospital Course: This patient is a 47-year-old male with a diagnosis of insulin-dependent diabetes, hypertension, history of NC at age 40, no stents. Patient presented to the emergency part with complaints of nausea vomiting that have been ongoing since this past Friday. He also complained of some shortness of breath during that time. 1. MSSA bacteremia The patient's blood cultures from 03/20/2018 are positive for GPC. Repeat blood cultures from 03/22/2018 are negative. The patient underwent JULIETA which not show any evidence of endocarditis. Infectious disease was following the patient throughout the hospitalization. He will be discharged home today and is to come to the infusion clinic to receive i.v. Rocephin for a total of 4 weeks. Instructions were given to the patient. Blood cultures x2 should be done after the completion of IV antibiotics. 2. Elevated troponin 3. History of myocardial infarction Troponins were elevated during the hospitalization at 0.3, then showed a down trend. EKG showed normal sinus rhythm, no acute ST segment or T wave changes, tachycardia. Cardiology evaluated the patient during the hospitalization, JULIETA done showed no evidence of endocarditis. Lexiscan was done which was normal, no active chest pain. Continue aspirin, statin, continue beta-carlota 3. Hypertension Patient elevated blood pressure systolic in the 150s. Metoprolol dose was increased today. Scripts for metoprolol were given to the patient. 4. Insulin-dependent diabetes While in the hospital the patient was kept on basal insulin as well as a low- dose insulin sliding scale. He can continue his home dose of insulin as he says his blood sugars are well controlled when at home DVT prophylaxis, patient is currently on heparin. - Time Spent with Patient Total time spent providing and/or coordinating discharge services: Greater than 30 minutes - Quality: VTE Deep Vein Thrombosis/Pulmonary Embolism Present on Admission: No Exam Vital signs: Vital Signs 03/24/18 12:00 03/24/18 16:00 03/24/18 20:00 Temperature 97.9 F 97.9 F 97.9 F Pulse Rate 76 80 86 Respiratory Rate 18 18 17 Blood Pressure 154/98 H 160/96 H 165/85 H Pulse Oximetry 97 98 95 03/25/18 00:00 03/25/18 04:00 03/25/18 08:00 Temperature 97.2 F L 97.9 F 98 F Pulse Rate 79 82 77 Respiratory Rate 17 17 18 Blood Pressure 172/84 H 115/69 154/86 H Pulse Oximetry 96 95 93 L Intake & Output 03/24/18 03/25/18 03/25/18 18:59 06:59 18:59 Intake Total 50 / 50 1060 / 1060 Balance 50 / 50 1060 / 1060 Weight 92.6 kg 91.3 kg Intake: IV 50 / 50 100 / 100 Ancef 2 GM Premix Inj 2 gm In 50 / 50 100 / 100 50 ml @ 100 mls/hr IV.SIG Q8H LI Rx#:[id number] Oral 960 / 960 Other: # Voids 5 Date of Last Bowel Movement 03/24/18 03/24/18 # Bowel Movements 1 Narrative: General patient in no acute distress, no chest pain HEENT extraocular movements are intact, clear oropharyngeal mucosa, no JVD Cardiovascular S1-S2 audible Respiratory clear to auscultation bilaterally Abdomen soft, nontender, nondistended, normal bowel sounds Extremities multiple healing wounds of bilateral lower extremities as well as left shoulder, no active drainage. Neuro no focal neurological deficits. Results Procedures completed during hospitalization: JULIETA, Lexiscan Labs on day of discharge: Labs from last 24 hours 03/25/18 03/24/18 03/24/18 07:17 19:29 16:57 POC Glucose 292 H 287 H 264 H 03/24/18 12:21 POC Glucose 238 H Preliminary micro results at discharge 03/22/18 18:00 Aerobic Blood Culture - Preliminary Blood - Peripheral No growth in 2 days Anaerobic Blood Culture - Preliminary No growth in 2 days 03/20/18 08:56 Anaerobic Blood Culture - Preliminary Blood - Peripheral No growth in 4 days 03/20/18 08:50 Aerobic Blood Culture - Preliminary Blood - Peripheral No growth in 4 days Anaerobic Blood Culture - Preliminary No growth in 4 days - Impressions ITS Impressions Pulmonary Perfusion Imaging 03/18/18 00:00 CONCLUSION: 1. Negative examination. Myocardial Perfusion Scan Nuc Med 03/20/18 00:00 CONCLUSION: 1. Negative examination. Shoulder X-Ray 03/20/18 00:00 CONCLUSION: Unremarkable study. Discharge Plan - Discharge Disposition Patient Disposition: Discharge Home - Discharge Condition Condition: Stable - Discharge Order Discharge Orders: Discharge Order (Routine); Ordered 03/25/18 Ordered By: Killian Teixeira - Physicians Team Primary Care Provider: UNKNOWN, Attending Provider: Killian Teixeira Other Providers: Kade Lr DO ; Violetta Blanca MD ; Francy Soriano MD - Rxs /Orders / Referrals /Forms Prescriptions: New metoprolol tartrate 25 mg Tablet 25 mg PO BID Qty: 60 RF: 0 Continue aspirin [Aspirin Low Dose] 81 mg Tablet,Delayed Release (Dr/Ec) 81 mg PO DAILY gabapentin 100 mg Capsule 100 mg PO TID insulin glargine [Lantus U-100 Insulin] 100 unit/mL Solution 60 unit SUBCUT BID lisinopril 10 mg Tablet 10 mg PO DAILY nortriptyline 25 mg PO HS pravastatin 40 mg Tablet 40 mg PO DAILY sertraline [Zoloft] 50 mg Tablet 50 mg PO DAILY Referrals: UNKNOWN, [Primary Care Provider] - See Instructions - Discharge Instructions Patient Printed Instructions: Bacteremia (DC) Additional Instructions: Patient given instructions to come to the infusion clinic for 4 wks of IV antibiotics. Repeat blood cxs x 2 after completion of IV antibiotics. Patient says he follows up at [facility] in [place] and his primary care doctor changes frequently. He says he will follow up with them in a week. - Post Discharge Care Plan Care Plan Goals: Your Health Problems: Goals to Promote Your Health: * To prevent worsening of your condition * To maintain your health at the optimal level Directions to Meet Your Goals: * Take your medications as prescribed * Follow your dietary instruction * Follow activity as directed * Keep your appointments as scheduled * Take your immunizations and boosters as scheduled * If your symptoms worsen call your PCP * If no PCP go to Urgent Care or Emergency Room Smoking is dangerous to your health. Avoid second hand smoke. You may reach the 24-hour crisis hotline for domestic abuse at .
[2018-03-25 09:38] VITALS: PULSE 73
== END 2018-03-25 10:53 | disposition home or self-care (01) | DRG 872 ==
LOC: NEDDLT 03-18 02:50 → HIMC 03-18 02:55 → N04 03-21 15:33
PROVIDERS: ADMIT Hospitalist; ATTEND Hospitalist
DX: Z23 Encounter for immunization; F32.9 Major depressive disorder, single episode, unspecified; R00.0 Tachycardia, unspecified; R11.2 Nausea with vomiting, unspecified; R78.81 Bacteremia; I25.2 Old myocardial infarction; E78.00 Pure hypercholesterolemia, unspecified; M25.511 Pain in right shoulder; Z79.4 Long term (current) use of insulin; Z79.82 Long term (current) use of aspirin; B95.61 Methicillin susceptible Staphylococcus aureus infection as the cause of diseases classified elsewhere; Z82.49 Family history of ischemic heart disease and other diseases of the circulatory system; I25.10 Atherosclerotic heart disease of native coronary artery without angina pectoris; E11.40 Type 2 diabetes mellitus with diabetic neuropathy, unspecified; I07.1 Rheumatic tricuspid insufficiency; Z83.3 Family history of diabetes mellitus; E78.5 Hyperlipidemia, unspecified; I10 Essential (primary) hypertension
CPT/HCPCS: 36569; 36600; 71020; 71046; 73030; 74177; 76937; 78452; 78582; 80048; 80053; 81001; 82272; 82550; 82805; 82948; 82962; 83605; 83690; 83735; 84443; 84484; 85025; 85027; 85379; 85610; 85730; 86403; 87040; 87086; 87149; 87181; 87185; 87186; 87205; 87641; 90658; 90686; 90761; 90765; 90775; 93005; 93017; 93306; 93312; 93320; 93325; 96361; 96365; 96375; 99285; A9502; A9519; A9540; A9567; C1094; J0690; J0696; J1644; J1815; J1885; J2270; J2405; J2543; J2785; J3370; J7030; J7050; Q2038; Q9967